=== PATIENT | male | born 1960 | race Caucasian/White ===

== ENCOUNTER → 2016-07-10 | Outpatient (CLI) | payer OTHER ==
[~2016-07-10] MED LIST: ACET-1257 PO; ASPI81TA28 PO; CEFT1INJ26 IV; CLB200 PO; DRGTP50 TD; LBT200 PO; LPT40 PO; LVQ500 PO; OXYC-609 PO; PREDPOW63 PO; RFM300 PO; SNK PO; SULF800T23 PO
== END | disposition home or self-care (01) ==
LOC: C.LABBFT 13:26
PROVIDERS: ATTEND Physician Assistant
DX: T84.54XD Infection and inflammatory reaction due to internal left knee prosthesis, subsequent encounter (principal); X58.XXXA Exposure to other specified factors, initial encounter; M00.062 Staphylococcal arthritis, left knee

== ENCOUNTER → 2016-09-25 | Outpatient (CLI) | payer OTHER ==
[2016-09-25 17:34] LABS: BASO % 0.7 %; BASO ABS # 0.06 K/uL (0-0.2); COMPLETE YES; EOS % 2.7 %; HEMATOCRIT 38.4 % (42-52); IG% 0.4 %; LYMPH % 23.3 %; LYMPH ABS # 1.97 K/uL (1.2-3.4); MEAN CELL VOLUME 86.9 fL (80-100); MEAN CORPUSCULAR HEMOGLOBIN 28.7 pg (25-34); MEAN CORPUSCULAR HGB CONC 33.1 g/dl (32-36); MEAN PLATELET VOLUME 10.1 fL (7.4-10.4); MONO % 8.6 %; NEUT % 64.3 %; PLATELET COUNT 323 K/uL (130-400); RED BLOOD COUNT 4.42 M/uL (4.7-6.1); WHITE BLOOD COUNT 8.45 K/uL (4.8-10.8)
[2016-09-25 19:04] LABS: ALB/GLOB RATIO 1.4 (0.9-2); ALKALINE PHOSPHATASE 87 U/L (45-117); ALT/SGPT 29 U/L (12-78); AST/SGOT 22 U/L (15-37); BLOOD UREA NITROGEN 16 mg/dl (7-18); BUN/CREATININE RATIO 12.3 (10-20); CALCIUM 8.9 mg/dl (8.5-10.1); CARBON DIOXIDE 23 mmol/L (21-32); CHLORIDE 109 mmol/L (98-107); GLUCOSE 82 mg/dl (70-99); POTASSIUM 4.3 mmol/L (3.5-5.1); SODIUM 142 mmol/L (136-145)
[2016-09-25 19:08] LABS: C-REACTIVE PROTEIN < 0.29 mg/dl (0-0.29)
== END | disposition home or self-care (01) ==
LOC: C.LABBFT 11:08
PROVIDERS: ATTEND Physician Assistant
DX: T84.54XD Infection and inflammatory reaction due to internal left knee prosthesis, subsequent encounter (principal); X58.XXXD Exposure to other specified factors, subsequent encounter; A49.8 Other bacterial infections of unspecified site; M00.062 Staphylococcal arthritis, left knee

== ENCOUNTER → 2016-11-11 | Outpatient (CLI) | payer OTHER | END | disposition home or self-care (01) | LOC: C.LABSPEC 10:14 | PROVIDERS: ATTEND Physician Assistant | DX: M00.062 Staphylococcal arthritis, left knee (principal); T84.54XD Infection and inflammatory reaction due to internal left knee prosthesis, subsequent encounter; Y84.8 Other medical procedures as the cause of abnormal reaction of the patient, or of later complication, without mention of misadventure at the time of the procedure ==

== ENCOUNTER → 2016-12-17 | Outpatient (CLI) | payer OTHER ==
[2016-12-17 17:18] LABS: BASO % 0.1 %; BASO ABS # 0.01 K/uL (0-0.2); COMPLETE YES; HEMATOCRIT 40.4 % (42-52); IG% 0.5 %; LYMPH % 7.9 %; LYMPH ABS # 1.32 K/uL (1.2-3.4); MEAN CELL VOLUME 86.1 fL (80-100); MEAN CORPUSCULAR HEMOGLOBIN 29.6 pg (25-34); MEAN CORPUSCULAR HGB CONC 34.4 g/dl (32-36); MEAN PLATELET VOLUME 10.3 fL (7.4-10.4); MONO % 7.5 %; PLATELET COUNT 308 K/uL (130-400); RED BLOOD COUNT 4.69 M/uL (4.7-6.1); WHITE BLOOD COUNT 16.69 K/uL (4.8-10.8)
[2016-12-22 22:31] LABS: IGG SERUM 698 mg/dL (694-1618)
== END | disposition home or self-care (01) ==
LOC: C.LAB1850 15:38
PROVIDERS: ATTEND Internal Medicine Infectious Disease
DX: I77.6 Arteritis, unspecified (principal)

== ENCOUNTER 2016-12-20 08:57 | Inpatient (IN) | payer OTHER ==
[~2016-12-20] VITALS: Ht 193 cm; Wt 110.5 kg
[2016-12-20] VITALS (35 sets, daily range): BP systolic 91–146; BP diastolic 49–90; PULSE 68–83; TEMP 37–37.3; O2SAT 90–98; Ht 193 cm; Wt 110.5 kg
[~2016-12-20 08:57] MED LIST changes: -LBT200 PO; -LPT40 PO; -OPTIRAY 320 IV PRN; -PREDPOW63 PO; -SULF800T23 PO
[2016-12-20] MEDS ORDERED: METOPROLOL TARTRATE 1 MG/ML VIAL IV STA (09:19)
[2016-12-20] MEDS ORDERED: SODIUM CHLORIDE 0.9% 500ML 500 ML IV STA (09:20)
[2016-12-20 09:31] LABS: BASO % 0.1 %; BASO ABS # 0.02 K/uL (0-0.2); COMPLETE YES; EOS % 0.3 %; HEMATOCRIT 39.8 % (42-52); IG% 0.7 %; LYMPH % 15.5 %; LYMPH ABS # 2.62 K/uL (1.2-3.4); MEAN CELL VOLUME 85.6 fL (80-100); MEAN CORPUSCULAR HEMOGLOBIN 29.9 pg (25-34); MEAN CORPUSCULAR HGB CONC 34.9 g/dl (32-36); MONO % 11.1 %; NEUT % 72.3 %; PLATELET COUNT 357 K/uL (130-400); RED BLOOD COUNT 4.65 M/uL (4.7-6.1); WHITE BLOOD COUNT 16.92 K/uL (4.8-10.8)
--- NOTE | 2016-12-20 09:32 | EMERGENCY ROOM VISIT NOTE ---
History Report prepared by Jaylan: Mary Feliz Under the Supervision of: Dr. Byron Vincent M.D. First contact with patient: 09:02 Chief Complaint: REFERRED BY DOCTOR Stated Complaint: DISECTING AORTA History of Present Illness The patient is a 56 year old male who presents to the Emergency Room after an abnormal CT scan this morning. The patient states that his symptoms started 6 days ago. He was at a picnic and ate a hamburger and a hot sausage. After eating he blew his nose and got a sharp pain in his upper back, just below his left shoulder blade. He had a "tight" feeling in his stomach and became nauseated. He states that he felt like he needed to have a bowel movement. The patient went to the ED in [place] the next day. He had a CT scan of the abdomen and pelvis and was diagnosed with aortitis. He was started on a steroid. The patient followed-up with Dr. Dinero (of infectious disease) 3 days ago, who ordered a repeat CT scan. The patient had his repeat scan this morning , which showed a descending aortic dissection. He was sent to the ED for further evaluation. The patient denies chest pain and abdominal pain. He is still having upper back pain under his left shoulder blade. He rates his pain as a 2/10 in severity. He took 1 oxycodone and 2 Tylenol [employer] and his helped alleviate some of his pain. He does not taken medication for HTN. He does take a daily baby aspirin. Source of History: patient Onset: this morning Position: chest Symptom Intensity: 2/10 Quality: sharp Timing: constant Modifying Factors (Relieving): tylenol, narcotics Associated Symptoms: + nausea, + back pain, No chest pain, No abdominal pain Review of Systems See HPI for pertinent positives & negatives. A total of 10 systems reviewed and were otherwise negative. Past Medical & Surgical Medical Problems: (1) Intractable neuropathic pain of left knee (2) Lung nodule (3) Post op infection Surgical Problems: (1) H/O left knee surgery (2) History of bilateral knee arthroplasty (3) History of knee surgery (4) Post-operative state (5) Post-operative state Social History Problems: (1) Septic arthritis Family History Hypertension FATHER Social History Smoking Status: Current Every Day Smoker Alcohol Use: none Drug Use: none Marital Status: Housing Status: lives with family Current/Historical Medications Scheduled Aspirin (Aspirin Ec), 81 MG PO BID Sulfa/Trimethoprim (Bactrim Ds 800MG/160MG), 1 TAB PO BID [Prednisone], 2 TAB PO DAILY Scheduled PRN Acetaminophen (Tylenol Extra Strength), 1,000 MG PO Q8 PRN for Pain Oxycodone HCl (Oxycodone HCl), 5-10 MG PO Q4H PRN for Pain Allergies Coded Allergies: No Known Allergies (Verified , 12/20/16) Physical Exam Vital Signs Date Time Temp Pulse Resp B/P (MAP) Pulse Ox O2 Delivery O2 Flow Rate FiO2 12/20/16 14:00 37.3 75 18 133/73 (93) 96 Room Air 12/20/16 13:27 70 12/20/16 13:21 68 18 119/80 96 Room Air 12/20/16 13:04 75 18 123/82 95 Room Air 12/20/16 12:52 72 18 115/72 95 Room Air 12/20/16 12:45 73 20 139/87 96 Room Air 12/20/16 12:15 73 18 135/92 95 Room Air 12/20/16 12:02 74 18 150/83 98 Room Air 12/20/16 12:01 98 Room Air 12/20/16 12:00 75 18 154/100 99 Room Air 12/20/16 11:33 76 18 162/100 96 Room Air 12/20/16 11:00 75 18 154/103 95 Room Air 12/20/16 10:20 67 20 144/98 95 Room Air 12/20/16 10:00 65 18 143/97 95 Room Air 12/20/16 09:54 70 18 145/103 94 Room Air 12/20/16 09:47 75 22 150/91 94 Room Air 12/20/16 09:43 87 173/87 12/20/16 09:38 81 20 173/87 97 Room Air 12/20/16 09:23 90 12/20/16 09:21 89 18 145/96 94 Room Air 12/20/16 09:15 95 12/20/16 09:00 36.5 108 17 162/91 96 Room Air Physical Exam GENERAL: Patient is a healthy-appearing well-nourished 56 year old male. HEAD: Normocephalic atraumatic EYES: Ocular movements intact pupils equal and react to light OROPHARYNX mucous membranes are moist no exudates present no erythema or edema present NECK: Supple no nuchal rigidity CHEST: Good equal expansion LUNGS: Clear and equal to auscultation CARDIAC: Normal S1 and S2 ABDOMEN: Soft nontender no guarding BACK: No CVA tenderness EXTREMITIES: No pain upon palpation normal muscle strength in all groups no clubbing cyanosis or edema NEURO: Patient is following commands and answering questions appropriately. Alert and oriented x3 Cranial Nerves 2-12 grossly intact Medical Decision & Procedures ER Provider Diagnostic Interpretation: Radiology results as stated below per my review and radiologist interpretation: CHEST COMBO ANGIO DISSECTION HISTORY: 56 years-old male patient presents with aortic dissection seen on comparison CT abdomen and pelvis study of same day. History of aortitis. COMPARISON: CT abdomen and pelvis 12/20/2016, CTA chest 02/05/2016 TECHNIQUE: CT angiography of the chest was obtained both with and without the use of 119 mL Optiray 320. Coronal and sagittal MIPS were obtained from the axial data set and were submitted for review. A dose lowering technique was used consistent with the principals of RUKHSANA. FINDINGS: CTA: No intramural hematoma identified on the noncontrast scan. There is only minimal atherosclerotic plaquing of the aorta. Heart is moderately enlarged without pericardial effusion. Theascending thoracic aorta is within normal limits. Normal three-vessel arch configuration is present with proximal great vessels patent. 5 x 6 mm collection of contrast involving the posterior aspect of the aortic isthmus suggests penetrating ulcer or small contrast collection from the dissection. Dissection begins at the aortic isthmus extending distally through the descending thoracic aorta into the upper abdominal aorta. Celiac trunk and superior mesenteric artery originate from the true lumen. Note is made of the left gastric artery emanating directly from the aorta, also from the true lumen. Based on these images, the kidneys appear to be perfused symmetrically and adequately. No a sending thoracic aortic dissection. Pulmonary arterial tree appears unremarkable. CT CHEST: Indeterminate 5 mm low attenuating nodule of the mid right thyroid is seen. No pathologic-appearing adenopathy. 6 mm noncalcified pulmonary nodule seen within the lateral basal segment right lower lobe, unchanged from comparison. Lung masters are otherwise clear without pneumothorax, pleural effusion or focal airspace consolidation. There are a few subpleural cystic foci of the right upper lobe which may reflect paraseptal emphysema. Central airways are patent. There is mild bronchial wall thickening of the lung bases. Imaged upper abdominal structures are within normal limits with the exception of nodular thickening of the left adrenal gland suggesting hyperplasia. Soft tissues and bony structures are unremarkable. IMPRESSION: 1. 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 Celiac trunk, left gastric and superior mesenteric artery originate from the true lumen. 2. 6 mm noncalcified pulmonary nodule of the lateral basal segment right lower lobe is unchanged from 02/05/2016. Follow-up guidelines are provided below. Please refer to below summary of Fleischner criteria recommendations for follow-up of incidental CT nodules (Luke Dumont, Guidelines for management of small pulmonary nodules detected on CT scans: A statement from the Fleischner Society, Radiology 237: [phone].) SOLID NODULES Solitary nodule size: <6 mm * Low risk patients: no follow-up needed * high risk patients: optional CT at 12 months Solitary nodule size: 6-8 mm * Low risk patients: follow-up at 6-12 months, then consider further follow-up at 18-24 months * high risk patients: initial follow-up CT at 6-12 months and then at 18-24 months if no change Solitary nodule size: >8 mm * either low or high risk patients - consider follow-up CT at 3 months, and/or CT-PET, and/or biopsy Multiple nodules size: <6 mm * Low risk patients: no routine follow-up * high risk patients: optional CT at 12 months Multiple nodules size: 6-8 mm * Low risk patients: follow-up at 3-6 months, then consider further follow-up at 18-24 months * high risk patients: follow-up at 3-6 months, then at 18-24 months if no change Multiple nodules size: >8 mm * Low risk patients: follow-up at 3-6 months, then consider further follow-up at 18-24 months * high risk patients: follow-up at 3-6 months, then at 18-24 months if no change Note: newly detected indeterminate nodule in persons 35 years of age or older. * Low risk patients: minimal or absent history of smoking and/or other known risk factors * high risk patients: history of smoking or of other known risk factors (e.g. first degree relative with lung cancer, or exposure to asbestos, radon, uranium) * if a nodule up to 8 mm is partly solid or is ground glass further follow-up is required after 24 months to exclude possible slow growing adenocarcinoma (FAB) SUBSOLID NODULES Solitary pure ground-glass nodule * nodule size <6 mm - no CT follow-up required * nodule size >=6 mm - follow-up CT at 6-12 months, then every 2 years until 5 years Solitary part-solid nodule * nodule size <6 mm - no CT follow-up required * nodule size >=6 mm - follow-up CT at 3-6 months. If unchanged, and solid component remains <6 mm, then annual follow-up for 5 years Multiple subsolid nodules * nodule size <6 mm - follow-up CT at 3-6 months, consider further follow-up at 2 and 4 years if stable * nodule size >=6 mm - follow-up CT at 3-6 months, subsequent management based on the most suspicious nodule(s) The above report was generated using voice recognition software. It may contain grammatical, syntax or spelling errors. Electronically signed by: Ancelmo Christiansen M.D. 12/20/2016 9:54 AM Dictated Date/Time: 12/20/2016 9:40 AM Laboratory Results 12/20/16 09:15 Red Blood Count 4.65, Mean Corpuscular Volume 85.6, Mean Corpuscular Hemoglobin 29.9, Mean Corpuscular Hemoglobin Concent 34.9, Mean Platelet Volume 10.0, Neutrophils (%) (Auto) 72.3, Lymphocytes (%) (Auto) 15.5, Monocytes (%) (Auto) 11.1, Eosinophils (%) (Auto) 0.3, Basophils (%) (Auto) 0.1, Neutrophils # (Auto ) 12.24, Lymphocytes # (Auto) 2.62, Monocytes # (Auto) 1.88, Eosinophils # (Auto ) 0.05, Basophils # (Auto) 0.02 12/20/16 09:15 Test 12/20/16 09:15 12/20/16 09:22 White Blood Count 16.92 K/uL (4.8-10.8) Red Blood Count 4.65 M/uL (4.7-6.1) Hemoglobin 13.9 g/dL (14.0-18.0) Hematocrit 39.8 % (42-52) Mean Corpuscular Volume 85.6 fL (80-100) Mean Corpuscular Hemoglobin 29.9 pg (25-34) Mean Corpuscular Hemoglobin Concent 34.9 g/dl (32-36) Platelet Count 357 K/uL (130-400) Mean Platelet Volume 10.0 fL (7.4-10.4) Neutrophils (%) (Auto) 72.3 % Lymphocytes (%) (Auto) 15.5 % Monocytes (%) (Auto) 11.1 % Eosinophils (%) (Auto) 0.3 % Basophils (%) (Auto) 0.1 % Neutrophils # (Auto) 12.24 K/uL (1.4-6.5) Lymphocytes # (Auto) 2.62 K/uL (1.2-3.4) Monocytes # (Auto) 1.88 K/uL (0.11-0.59) Eosinophils # (Auto) 0.05 K/uL (0-0.5) Basophils # (Auto) 0.02 K/uL (0-0.2) RDW Standard Deviation 41.3 fL (36.4-46.3) RDW Coefficient of Variation 13.2 % (11.5-14.5) Immature Granulocyte % (Auto) 0.7 % Immature Granulocyte # (Auto) 0.11 K/uL (0.00-0.02) Est Creatinine Clear Calc Drug Dose 86.4 ml/min Estimated GFR () 79.0 Estimated GFR (Non- 68.1 BUN/Creatinine Ratio 15.0 (10-20) Calcium Level 9.6 mg/dl (8.5-10.1) Total Bilirubin 0.4 mg/dl (0.2-1) Direct Bilirubin 0.1 mg/dl (0-0.2) Aspartate Amino Transf (AST/SGOT) 64 U/L (15-37) Alanine Aminotransferase (ALT/SGPT) 160 U/L (12-78) Alkaline Phosphatase 104 U/L (45-117) Total Creatine Kinase 106 U/L (39-308) Creatine Kinase MB 2.2 ng/ml (0.5-3.6) Creatine Kinase MB Ratio 2.1 (0-3.0) Troponin I < 0.015 ng/ml (0-0.045) Total Protein 8.1 gm/dl (6.4-8.2) Albumin 3.9 gm/dl (3.4-5.0) Lipase 147 U/L (73-393) Bedside Hemoglobin 15.0 g/dl (14.0-18.0) Bedside Hematocrit 44 % (42-52) Bedside Sodium 135 mEq/L (135-144) Bedside Potassium 3.6 mEq/L (3.3-5.0) Bedside Chloride 97 mEq/L (101-112) Bedside Total CO2 25 mEq/l (24-31) Anion Gap 17.0 mmol/L (16-25) Bedside Blood Urea Nitrogen 19 mg/dl (7-18) Bedside Creatinine 1.2 mg/dl (0.6-1.3) Bedside Glucose (other) 102 mg/dl (70-99) Bedside Ionized Calcium (Kt) 1.20 mmol/l (1.12-1.32) Labs reviewed by ED physician. Medications Administered Medications (Trade) Dose Ordered Sig/Kaylie Route Start Time Stop Time Status Last Admin Dose Admin Metoprolol Tartrate (Lopressor Iv) 15 mg NOW STAT IV 12/20/16 09:19 12/20/16 09:21 DC 12/20/16 09:43 15 MG Sodium Chloride 500 ml @ 999 mls/hr Q31M STAT IV 12/20/16 09:20 12/20/16 09:50 DC 12/20/16 09:37 999 MLS/HR Esmolol HCl 2500 mg/Prmx 250 ml @ 0 mls/hr Q0M PRN IV 12/20/16 10:45 01/19/17 10:44 12/20/16 12:39 56.7 MLS/HR ECG Indication: back/shoulder pain Rate (beats per minute): 96 Rhythm: normal sinus Findings: no acute ischemic change, no ectopy ED Course 0902: Past medical records reviewed. The patient was evaluated in room A10. A complete history and physical examination was performed. 0908: I discussed the patient's case with Dr. Healy of vascular surgery. He felt that we could keep that patient at our facility for symptomatic treatment. He did not think that the patient needed to be transferred at this time. 0919: Lopressor 15 mg IV 0920: NSS 500 ml @ 999 mls/hr IV 0922: I spoke with the radiologist and we discussed the most appropriate radiograph studies for the patient. 1037: I discussed the patient's case with Dr. Floyd of cardiology. He recommended starting the patient on an Esmolol drip and consulting with Dr. Healy. 1045: Esmolol HCl 2500 mg/Prmx 1051: I spoke with Alice Mcclain PA-C. We discussed the patient's case. The patient will be evaluated by the [facility] for further management. 1057: I reassessed the patient at this time. He is feeling better and resting comfortably. I discussed the results and treatment plan with the patient. I answered all pertaining questions that he had. He expressed understanding and verbalized agreement. 1110: I spoke with Dr. Healy of vascular surgery again at this time and we discussed the patient's results and treatment plan. Medical Decision Differential diagnosis: Etiologies such as cardiac ischemia, aortic dissection, pulmonary embolism, pneumonia, pneumothorax, musculoskeletal, infections, pericarditis, myocarditis , esophageal rupture, gastrointestinal, as well as others were entertained. This is a 56-year-old male who presents emergency department after a dissection was found on his CAT scan of his abdomen pelvis. As the topical heart is not shown the patient was sent for a contrast study of his chest immediately. He was also given Lopressor for his blood pressure. CT of his chest only shows a descending dissection. The patient's pain was controlled in the emergency department. I did discuss the case with both cardiology as well as vascular surgery who asked that the patient be admitted to the medicine service. Patient and family were in agreement with the treatment plan. Medication Reconcilliation Current Medication List: was personally reviewed by me Blood Pressure Screening Patient's blood pressure: Elevated blood pressure Blood pressure disposition: Referred to PCP Consults Time Called: 09 Consulting Physician: Dr. Healy Returned Call: [phone] I discussed the patient's case with Dr. Healy of vascular surgery. He felt that we could keep that patient at our facility for symptomatic treatment. He did not think that the patient needed to be transferred at this time. Additional Consults: Time Called: 1033 Consulted Physician: Dr. Floyd Returned Call: [phone] Additional Comments: I discussed the patient's case with Dr. Floyd of cardiology. He recommended starting the patient on an Esmolol drip and consulting with Dr. Healy. Time Called: 1043 Consulted Physician: Alice Mcclain PA-C Returned Call: [phone] Additional Comments: I spoke with Alice Mcclain PA-C. We discussed the patient's case. The patient will be evaluated by the [facility] for further management. Impression Primary Impression: Descending thoracic aortic dissection Critical Care I have personally spent greater than 30 minutes of critical care time in the direct management of this patient. This includes bedside care, interpretation of diagnostic studies, and testing, discussion with consultants, patient, and family members, and other required patient management activities. This 30 minutes is in excess of all separately billable procedures. Scribe Attestation The scribe's documentation has been prepared under my direction and personally reviewed by me in its entirety. I confirm that the note above accurately reflects all work, treatment, procedures, and medical decision making performed by me. Departure Information Dispostion Being Evaluated By Hospitalist Referrals Bobby Dinero MD (PCP) Patient Instructions My [facility]
[2016-12-20 09:34] LABS: ISTAT CREATININE 1.2 mg/dl (0.6-1.3); ISTAT IONIZED CALCIUM 1.2 mmol/l (1.12-1.32)
[2016-12-20] MEDS ORDERED: OPTIRAY 320 IV PRN (09:45)
[2016-12-20 09:50] LABS: ALT/SGPT 160 U/L (12-78); AST/SGOT 64 U/L (15-37); BLOOD UREA NITROGEN 18 mg/dl (7-18); CALCIUM 9.6 mg/dl (8.5-10.1); CARBON DIOXIDE 28 mmol/L (21-32); CHLORIDE 100 mmol/L (98-107); GLUCOSE 100 mg/dl (70-99); POTASSIUM 3.6 mmol/L (3.5-5.1); SODIUM 133 mmol/L (136-145)
[2016-12-20 09:55] LABS: ALKALINE PHOSPHATASE 104 U/L (45-117); CKMB/CK RATIO 2.1 (0-3.0)
--- NOTE | 2016-12-20 09:56 | DIAGNOSTIC IMAGING REPORT ---
CHEST COMBO ANGIO DISSECTION HISTORY: 56 years-old male patient presents with aortic dissection seen on comparison CT abdomen and pelvis study of same day. History of aortitis. COMPARISON: CT abdomen and pelvis 12/20/2016, CTA chest 02/05/2016 TECHNIQUE: CT angiography of the chest was obtained both with and without the use of 119 mL Optiray 320. Coronal and sagittal MIPS were obtained from the axial data set and were submitted for review. A dose lowering technique was used consistent with the principals of RUKHSANA. FINDINGS: CTA: No intramural hematoma identified on the noncontrast scan. There is only minimal atherosclerotic plaquing of the aorta. Heart is moderately enlarged without pericardial effusion. Theascending thoracic aorta is within normal limits. Normal three-vessel arch configuration is present with proximal great vessels patent. 5 x 6 mm collection of contrast involving the posterior aspect of the aortic isthmus suggests penetrating ulcer or small contrast collection from the dissection. Dissection begins at the aortic isthmus extending distally through the descending thoracic aorta into the upper abdominal aorta. Celiac trunk and superior mesenteric artery originate from the true lumen. Note is made of the left gastric artery emanating directly from the aorta, also from the true lumen. Based on these images, the kidneys appear to be perfused symmetrically and adequately. No a sending thoracic aortic dissection. Pulmonary arterial tree appears unremarkable. CT CHEST: Indeterminate 5 mm low attenuating nodule of the mid right thyroid is seen. No pathologic-appearing adenopathy. 6 mm noncalcified pulmonary nodule seen within the lateral basal segment right lower lobe, unchanged from comparison. Lung masters are otherwise clear without pneumothorax, pleural effusion or focal airspace consolidation. There are a few subpleural cystic foci of the right upper lobe which may reflect paraseptal emphysema. Central airways are patent. There is mild bronchial wall thickening of the lung bases. Imaged upper abdominal structures are within normal limits with the exception of nodular thickening of the left adrenal gland suggesting hyperplasia. Soft tissues and bony structures are unremarkable. IMPRESSION: 1. Aortic dissection begins at the aortic isthmus extending distally into the descending thoracic aorta and imaged upper abdominal aorta compatible with a Me[place] type B dissection. Celiac trunk, left gastric and superior mesenteric artery originate from the true lumen. 2. 6 mm noncalcified pulmonary nodule of the lateral basal segment right lower lobe is unchanged from 02/05/2016. Follow-up guidelines are provided below. Please refer to below summary of Fleischner criteria recommendations for follow-up of incidental CT nodules (Luke Dumont, Guidelines for management of small pulmonary nodules detected on CT scans: A statement from the Fleischner Society, Radiology 237: [phone].) SOLID NODULES Solitary nodule size: <6 mm * Low risk patients: no follow-up needed * high risk patients: optional CT at 12 months Solitary nodule size: 6-8 mm * Low risk patients: follow-up at 6-12 months, then consider further follow-up at 18-24 months * high risk patients: initial follow-up CT at 6-12 months and then at 18-24 months if no change Solitary nodule size: >8 mm * either low or high risk patients - consider follow-up CT at 3 months, and/or CT-PET, and/or biopsy Multiple nodules size: <6 mm * Low risk patients: no routine follow-up * high risk patients: optional CT at 12 months Multiple nodules size: 6-8 mm * Low risk patients: follow-up at 3-6 months, then consider further follow-up at 18-24 months * high risk patients: follow-up at 3-6 months, then at 18-24 months if no change Multiple nodules size: >8 mm * Low risk patients: follow-up at 3-6 months, then consider further follow-up at 18-24 months * high risk patients: follow-up at 3-6 months, then at 18-24 months if no change Note: newly detected indeterminate nodule in persons 35 years of age or older. * Low risk patients: minimal or absent history of smoking and/or other known risk factors * high risk patients: history of smoking or of other known risk factors (e.g. first degree relative with lung cancer, or exposure to asbestos, radon, uranium) * if a nodule up to 8 mm is partly solid or is ground glass further follow-up is required after 24 months to exclude possible slow growing adenocarcinoma (FAB) SUBSOLID NODULES Solitary pure ground-glass nodule * nodule size <6 mm - no CT follow-up required * nodule size >=6 mm - follow-up CT at 6-12 months, then every 2 years until 5 years Solitary part-solid nodule * nodule size <6 mm - no CT follow-up required * nodule size >=6 mm - follow-up CT at 3-6 months. If unchanged, and solid component remains <6 mm, then annual follow-up for 5 years Multiple subsolid nodules * nodule size <6 mm - follow-up CT at 3-6 months, consider further follow-up at 2 and 4 years if stable * nodule size >=6 mm - follow-up CT at 3-6 months, subsequent management based on the most suspicious nodule(s) The above report was generated using voice recognition software. It may contain grammatical, syntax or spelling errors. Electronically signed by: Ancelmo Christiansen M.D. 12/20/2016 9:54 AM Dictated Date/Time: 12/20/2016 9:40 AM
[2016-12-20] MEDS ORDERED: PREDPOW63 PO (10:59)
[2016-12-20] MEDS ORDERED: SULF800T23 PO (10:59)
[2016-12-20] MEDS ORDERED: MoRPHine SULFATE 2 MG/ML CARP IV PRN (12:00)
[2016-12-20] MEDS ORDERED: ONDANSETRON INJ 2 MG/ML 2 ML VIAL IV PRN (12:00)
[2016-12-20] MEDS: ESMOLOL / NSS 2,500 MG in PREMIXED NSS 250 ML IV PRN ×5 (12:02→21:31)
--- NOTE | 2016-12-20 13:14 | History and Physical ---
History & Physical Date & Time of Service: Dec 20, 2016 at 12:38 Chief Complaint: Disecting Aorta Primary Care Physician: Bobby Dinero MD History of Present Illness This is a 56yo M with a PMH of uncontrolled HTN, tobacco use disorder and h/o post-op knee infection who presents after an abnormal CT scan this morning showed a descending aortic dissection. Patient states that 6 days ago, he was at a picnic when he sneezed and immediately "felt a tear" in his back. Describes this immediate pain as ripping and constant in a band-like distribution across his lower back. Associated symptoms include nausea and vomiting as well as an eventual tight feel in his stomach as well. Since patient had just been eating at the picnic, he assumed he was experiencing food poisoning and returned home. By the next morning, back pain had relocated from his lower back to a sharp pain beneath his L shoulder blade. Went to the [place] ED, where he had a CT scan of abdomen/pelvis and was diagnosed with aortitis and sent home with a prednisone taper. Continued to experience pain around L shoulder blade, as well as a lessened degree of nausea/vomiting throughout the rest of the week. Was feeling almost back to his baseline when he went to a follow-up ID appt with Dr. Dinero this morning. After describing the recent events to Dr. Dinero, a repeat CT abd/pelvis was ordered, which showed a descending aortic dissection. Patient was sent to ED for further evaluation. 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 Denies any headache, lightheadedness, CP, SOB, abd pain, nausea/vomiting. Has been told in the past that he has HTN but has never taken medication for it. Does not have a PCP. Has ~10 pack years from smoking cigarettes. Denies drug use. 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 Trejo Status: Chronic (2) History of bilateral knee arthroplasty Permanent Comment: 2007 Status: Resolved (3) History of knee surgery Permanent Comment: Bilat patella revision 12/2015 Status: Resolved Family History Hypertension FATHER Social History Smoking Status: Current Every Day Smoker (1/2 PPD for ~20 years ) Drug Use: none Marital Status: Immunizations History of Influenza Vaccine: No History of Tetanus Vaccine?: No History of Pneumococcal: No History of Hepatitis B Vaccine: No Allergies Coded Allergies: No Known Allergies (Verified , 12/20/16) Home Medications Scheduled Aspirin (Aspirin Ec), 81 MG PO BID Sulfa/Trimethoprim (Bactrim Ds 800MG/160MG), 1 TAB PO BID [Prednisone], 2 TAB PO DAILY Scheduled PRN Acetaminophen (Tylenol Extra Strength), 1,000 MG PO Q8 PRN for Pain Oxycodone HCl (Oxycodone HCl), 5-10 MG PO Q4H PRN for Pain Review of Systems Ten systems reviewed and negative except as noted in the HPI. Physical Exam Vital Signs Date Time Temp Pulse Resp B/P (MAP) Pulse Ox O2 Delivery O2 Flow Rate FiO2 12/20/16 12:15 73 18 135/92 95 Room Air 12/20/16 12:02 74 18 150/83 98 Room Air 12/20/16 12:01 98 Room Air 12/20/16 12:00 75 18 154/100 99 Room Air 12/20/16 11:33 76 18 162/100 96 Room Air 12/20/16 11:00 75 18 154/103 95 Room Air 12/20/16 10:20 67 20 144/98 95 Room Air 12/20/16 10:00 65 18 143/97 95 Room Air 12/20/16 09:54 70 18 145/103 94 Room Air 12/20/16 09:47 75 22 150/91 94 Room Air 12/20/16 09:43 87 173/87 12/20/16 09:38 81 20 173/87 97 Room Air 12/20/16 09:23 90 12/20/16 09:21 89 18 145/96 94 Room Air 12/20/16 09:15 95 12/20/16 09:00 36.5 108 17 162/91 96 Room Air General Appearance: WD/WN, no apparent distress Head: normocephalic, atraumatic Eyes: normal inspection, PERRL ENT: hearing grossly normal Neck: supple, no adenopathy, thyroid normal, trachea midline Respiratory/Chest: chest non-tender, lungs clear, normal breath sounds, no respiratory distress, no accessory muscle use Cardiovascular: regular rate, rhythm, no murmur Abdomen/GI: normal bowel sounds, non tender, soft, no pulsatile mass Back: normal inspection (TTP under L shoulder blade ), no CVA tenderness Extremities/Musculoskelatal: normal inspection, no calf tenderness, normal capillary refill, no pedal edema Neurologic/Psych: no motor/sensory deficits, alert, normal mood/affect, oriented x 3 Skin: normal color, warm/dry, no rash, + pertinent finding (L knee with presence of erythema and purulent drainage surrounding vertical incision site. ) Diagnostics Laboratory Results Results Past 24 Hours Test 12/20/16 09:15 12/20/16 09:22 Range/Units White Blood Count 16.92 4.8-10.8 K/uL Red Blood Count 4.65 4.7-6.1 M/uL Hemoglobin 13.9 14.0-18.0 g/dL Hematocrit 39.8 42-52 % Mean Corpuscular Volume 85.6 80-100 fL Mean Corpuscular Hemoglobin 29.9 25-34 pg Mean Corpuscular Hemoglobin Concent 34.9 32-36 g/dl Platelet Count 357 130-400 K/uL Mean Platelet Volume 10.0 7.4-10.4 fL Neutrophils (%) (Auto) 72.3 % Lymphocytes (%) (Auto) 15.5 % Monocytes (%) (Auto) 11.1 % Eosinophils (%) (Auto) 0.3 % Basophils (%) (Auto) 0.1 % Neutrophils # (Auto) 12.24 1.4-6.5 K/uL Lymphocytes # (Auto) 2.62 1.2-3.4 K/uL Monocytes # (Auto) 1.88 0.11-0.59 K/uL Eosinophils # (Auto) 0.05 0-0.5 K/uL Basophils # (Auto) 0.02 0-0.2 K/uL RDW Standard Deviation 41.3 36.4-46.3 fL RDW Coefficient of Variation 13.2 11.5-14.5 % Immature Granulocyte % (Auto) 0.7 % Immature Granulocyte # (Auto) 0.11 0.00-0.02 K/uL Sodium Level 133 136-145 mmol/L Potassium Level 3.6 3.5-5.1 mmol/L Chloride Level 100 98-107 mmol/L Carbon Dioxide Level 28 21-32 mmol/L Anion Gap 5.0 17.0 16-25 mmol/L Blood Urea Nitrogen 18 7-18 mg/dl Creatinine 1.20 0.60-1.40 mg/dl Est Creatinine Clear Calc Drug Dose 86.4 ml/min Estimated GFR () 79.0 Estimated GFR (Non- 68.1 BUN/Creatinine Ratio 15.0 10-20 Random Glucose 100 70-99 mg/dl Calcium Level 9.6 8.5-10.1 mg/dl Total Bilirubin 0.4 0.2-1 mg/dl Direct Bilirubin 0.1 0-0.2 mg/dl Aspartate Amino Transf (AST/SGOT) 64 15-37 U/L Alanine Aminotransferase (ALT/SGPT) 160 12-78 U/L Alkaline Phosphatase 104 45-117 U/L Total Creatine Kinase 106 39-308 U/L Creatine Kinase MB 2.2 0.5-3.6 ng/ml Creatine Kinase MB Ratio 2.1 0-3.0 Troponin I < 0.015 0-0.045 ng/ml Total Protein 8.1 6.4-8.2 gm/dl Albumin 3.9 3.4-5.0 gm/dl Lipase 147 73-393 U/L Bedside Hemoglobin 15.0 14.0-18.0 g/dl Bedside Hematocrit 44 42-52 % Bedside Sodium 135 135-144 mEq/L Bedside Potassium 3.6 3.3-5.0 mEq/L Bedside Chloride 97 101-112 mEq/L Bedside Total CO2 25 24-31 mEq/l Bedside Blood Urea Nitrogen 19 7-18 mg/dl Bedside Creatinine 1.2 0.6-1.3 mg/dl Bedside Glucose (other) 102 70-99 mg/dl Bedside Ionized Calcium (Kt) 1.20 1.12-1.32 mmol/l Diagnostic Radiology CT combo angio dissection: IMPRESSION: 1. Aortic dissection begins at the aortic isthmus extending distally into the descending thoracic aorta and imaged upper abdominal aorta compatible with a [place] type B dissection. Celiac trunk, left gastric and superior mesenteric artery originate from the true lumen. 2. 6 mm noncalcified pulmonary nodule of the lateral basal segment right lower lobe is unchanged from 02/05/2016. Follow-up guidelines are provided below. Normal EKG Impression Assessment and Plan This is a 56yo M with a PMH of uncontrolled HTN, tobacco use disorder and h/o post-op knee infection who presents after an abnormal CT scan this morning showed a descending aortic dissection. New type B descending aortic dissection: stable -Risk factors: uncontrolled HTN, smoking -Per CT combo angio dissection: -Aortic dissection begins at the aortic isthmus extending distally into the descending thoracic aorta and imaged upper abdominal aorta compatible with a New type B dissection -Consulted vascular surgery. Following case but not surgical currently -Consulted nuclear medicine technician. Admitting to ICU for medical mgmt -Started esmolol drip. Goal is for BP <120/80 -BP decreased to 135/92 currently. Vitals are stable -Morphine for pain control, zofran for nausea HTN: -H/o uncontrolled HTN -Currently controlled on drip -Plan to transition to oral agents -Will need to establish care with PCP for out-pt mgmt Tobacco use disorder: -H/o 10 pack years -Interest in quitting -Ordered smoking cessation consult Post-op L knee infection: -S/p Left Knee irrigation and debridement by Dr. Trejo on 02/04/16 -Follows with Dr. 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 He was at Dr. Dinero's office due to a chronic L knee infection (he is on chronic Bactrim) - and he was told to come back after repeat CT showed descending aortic dissection. Upon presentation, another CT confirmed this diagnosis - patient is comfortable, in no distress, vitals stable. No significant findings on physical exam. Dr. Healy, of vascular surgery, consulted and recommend IV b-divya. Spoke with Dr. Bravo, nuclear medicine technician - we will admit to the ICU, continue esmolol drip for now; possible transition to labetalol drip and then start oral b-divya. Likely non-surgical case, Dr. Healy, vascular surgery consulted as well. Level of Care Critical Care Advanced Directives Existing Living Will: No Existing Power of [place] Program Coordinator: No Resuscitation Status FULL RESUSCITATION VTE Prophylaxis VTE Risk Assessment Done? Y/N: Yes Risk Level: Moderate Given or contraindicated: SCD's
--- NOTE | 2016-12-20 15:04 | Surgery Consultation ---
Consultation Date of Service Dec 20, 2016. (Sendy Osman, LAM) Chief Complaint thoracic aortic dissection (Sendy Osman, LAM) History of Present Illness The patient is a 56 year old male with hx of BL knee replacements and untreated HTN, admitted for thoracic aortic dissection, seen in consultation today. Pt states he had a tearing sensation in chest/back a few days ago, then developed sharp pain in low back/abdomen, which prompted him to seek medical attention at [facility] 2 days ago, where he was told he had aortitis and started on prednisone. Had appt with Dr Bobby Dinero for ID, who ordered a repeat CT scan which demonstrated the dissection. States to not currently having a PCP, so has not had HTN treated for years. Denies family hx of similar problems. Denies MÉNDEZ, fever, chills, SOB, N/V, rest pain, claudication, other complaints. Does smoke 1/2 PPD. (Sendy Osman, LAM) Vitals Vital Signs Past 12 Hours Date Time Temp Pulse Resp B/P (MAP) Pulse Ox O2 Delivery O2 Flow Rate FiO2 12/20/16 14:00 37.3 75 18 133/73 (93) 96 Room Air 12/20/16 13:27 70 12/20/16 13:21 68 18 119/80 96 Room Air 12/20/16 13:04 75 18 123/82 95 Room Air 12/20/16 12:52 72 18 115/72 95 Room Air 12/20/16 12:45 73 20 139/87 96 Room Air 12/20/16 12:15 73 18 135/92 95 Room Air 12/20/16 12:02 74 18 150/83 98 Room Air 12/20/16 12:01 98 Room Air 12/20/16 12:00 75 18 154/100 99 Room Air 12/20/16 11:33 76 18 162/100 96 Room Air 12/20/16 11:00 75 18 154/103 95 Room Air 12/20/16 10:20 67 20 144/98 95 Room Air 12/20/16 10:00 65 18 143/97 95 Room Air 12/20/16 09:54 70 18 145/103 94 Room Air 12/20/16 09:47 75 22 150/91 94 Room Air 12/20/16 09:43 87 173/87 12/20/16 09:38 81 20 173/87 97 Room Air 12/20/16 09:23 90 12/20/16 09:21 89 18 145/96 94 Room Air 12/20/16 09:15 95 12/20/16 09:00 36.5 108 17 162/91 96 Room Air (Sendy Osman PA-C) Allergies Coded Allergies: No Known Allergies (Verified , 12/20/16) Home Medications Scheduled Aspirin (Aspirin Ec), 81 MG PO BID Sulfa/Trimethoprim (Bactrim Ds 800MG/160MG), 1 TAB PO BID [Prednisone], 2 TAB PO DAILY Scheduled PRN Acetaminophen (Tylenol Extra Strength), 1,000 MG PO Q8 PRN for Pain Oxycodone HCl (Oxycodone HCl), 5-10 MG PO Q4H PRN for Pain Problem List Medical Problems: (1) Intractable neuropathic pain of left knee (2) Lung nodule (3) Post op infection Surgical Problems: (1) H/O left knee surgery (2) History of bilateral knee arthroplasty (3) History of knee surgery (4) Post-operative state (5) Post-operative state Social History Problems: (1) Septic arthritis (Sendy Osman PA-C) Surgical / Medical History Hx Cardiac Surgery: No Hx Abdominal Surgery: No Hx Cancer Surgery: No Hx Thoracic Surgery: No Hx Orthopedic: Yes (bilateral knee replacement 11/16/2007) Hx Urinary Tract Surgery: No HX Other Surgery: No Past Medical/Surgical History: Hypertension (Sendy Osman PA-C) Family History Hypertension FATHER (Sendy Osman PA-C) Hypertension FATHER (Taco Healy M.D.) Social History Smoking Status: Current Every Day Smoker (1/2 PPD for ~20 years ) Hx Tobacco Use In Past Year?: Yes (1-3 cigarettes a day ) Hx Alcohol Use - Type & Amnt: No Hx Substance Use -Type & Amnt: No (Sendy Osman PA-C) Review of Systems Constitutional: No chills, No fever, No malaise Skin: No change in color Eyes: No visual changes ENMT: No sore throat Respiratory: No cough, No ASHER, No short of breath Cardiovascular: + chest pain, No palpitations, No syncope, No edema, No intermittent claudication Gastrointestinal: + abdominal pain, No nausea, No vomiting Musculoskeletal: + back pain Neurologic: No dizziness, No headache, No lethargy, No numbness, No tingling ( Sendy Osman PA-C) Physical Exam Constitutional: General Apperance: heathly-appearing, well-nourished, well-developed Level of Distress: NAD Ambulation: ambulating normally Psychiatric: Mental Status: active & alert, normal mood, normal affect Orientation: oriented except where noted, to time, to place, to person Memory: recent memory normal, remote memory normal Head: normocephalic, atraumatic Eyes: EOM: EOMI ENMT: normal ENT inspection, hearing grossly normal Neck: supple, trachea midline Lungs: Respiratory effort: no dyspnea Auscultation: breath sounds normal, no wheezing, no rales/crackles, no rhonchi Cardiovascular: Apical Impulse: not displaced Heart Auscultation: RRR, no rubs, no gallops Peripheral Pulses: Pulses: full and equal, in all extremities except if noted Bruits: none appreciated Carotid Pulse: normal on the left, normal on the right Brachial Pulses: normal on the left, normal on the right Radial Pulse: normal on the left, normal on the right Femoral Pulse: normal on the left, normal on the right Posterior Tibialis Pulse: normal on the left, normal on the right Dorsalis Pedis Pulse: normal on the left, normal on the right Abdomen: Bowel Sounds: normal Inspection & Palpation: soft, non-distended, no tenderness, guarding & rebound Musculoskeletal: normal strength (5/5 throughout), normal tone Extremities: Upper Right: no cyanosis, no edema, no varicosities Upper Left: no cyanosis, no edema, no varicosities Lower Right: no cyanosis, no edema, no varicosities Lower Left: no cyanosis, no edema, no varicosities Neurologic: Cranial Nerves: grossly intact Sensation: grossly intact (Sendy Osman PA-C) Assessment and Plan ASSESSMENT and PLAN: Thoracoabdominal aortic dissection HTN Pt's imaging also reviewed by Dr Healy, demonstrates long dissection beginning distal to subclavian art with all significant branches fed by the true lumen. Pt hypertensive on arrival, improved currently. Pt states pain well controlled currently. Recommend monitoring for changes, treat with antihypertensives(BB). No indications for urgent intervention at this time. Please call if needed. (Sendy Osman, PA-C) Patient was seen, examined, and chart reviewed. Agree with exam and treatment plan of the Vascular PA. Would like to beta block to keep systolic 120 or lower. Thank you very much for letting me participate in the care of this patient. (Taco Healy M.D.)
[2016-12-20] MEDS ORDERED: NURSING VERBAL MED ORDER ONE (15:15)
[2016-12-20] MEDS: SULFAMETHOXAZOLE/TRIMETHOPRIM DS 800/160MG TAB PO SCH (16:03)
--- NOTE | 2016-12-20 16:38 | Critical Care Consultation ---
Critical Care Consultation Date of Consultation: Dec 20, 2016. Attending Physician: Lucas Portillo M.D. Reason for Consultation: Aortic Dissection History of Present Illness 56 year old male with a PMH of uncontrolled HTN, tobacco use and post op knee infection who presented to the ED this morning after a CT showed a descending thoracic dissection Last Friday he was at a picnic, sneezed and then felt a sudden pain in his back. He says it was a shearing pain around his lower back. He also felt nauseated, he vomited and he felt a tight feeling in his stomach. The next morning his back pain moved to his Left shoulder blade. He therefore went to the [facility] where a CT of his abdomen/pelvis showed aortitis at which point he was sent home with a prednisone taper. Throughout the week he continued to have L shoulder pain as well as lower back pain He had follow up with Dr. Dinero for his chronic knee infection and Dr. Dinero repeated his CT imaging which showed a descending aortic dissection. He was then contacted and told to come to the emergency department immediately. In the emergency department he rates his pain a 2/10 and his blood pressure was elevated at 162/91, but otherwise he was hemodynamically stable and in no acute distress. Dr. Healy was consulted for further management. After reviewing the images Dr. Healy deemed the patient be medically managed as he was a [place] Class B Aortic dissection. He was started on an esmolol drip for blood pressure management and he was admitted to the ICU for further observation and management. Of note the patient does not have a PCP and sees Dr. Dinero regularly for a chronic right knee infection. He has a 10-15 pack year smoking history. Past Medical/Surgical History Hypertension - not on medication Left knee septic arthritis- sees Dr. Dinero and is on bactrim daily Bilateral knee replacement Family History Hypertension FATHER Mother -Diabetes and high cholesterol No immediate family with history of HTN, UT or stroke Social History Smoking Status: Current Every Day Smoker (1/2 PPD for ~20 years ) Drug Use: none Marital Status: Housing Status: lives with family Occupation Status: employed Allergies Coded Allergies: No Known Allergies (Verified , 12/20/16) Home Medications Scheduled Aspirin (Aspirin Ec), 81 MG PO BID Sulfa/Trimethoprim (Bactrim Ds 800MG/160MG), 1 TAB PO BID [Prednisone], 2 TAB PO DAILY Scheduled PRN Acetaminophen (Tylenol Extra Strength), 1,000 MG PO Q8 PRN for Pain Oxycodone HCl (Oxycodone HCl), 5-10 MG PO Q4H PRN for Pain Current Inpatient Medications Current Inpatient Medications Medications (Trade) Dose Ordered Sig/Kaylie Route Start Time Stop Time Status Last Admin Dose Admin Ioversol (Optiray 320) 125 ml UD PRN IV 12/20/16 09:45 12/24/16 09:44 Ondansetron HCl (Zofran Inj) 4 mg Q6H PRN IV 12/20/16 12:00 01/19/17 11:59 Morphine Sulfate (MoRPHine SULFATE INJ) 2 mg Q2H PRN IV 12/20/16 12:00 01/03/17 11:59 Morphine Sulfate (MoRPHine SULFATE INJ) 4 mg Q2H PRN IV 12/20/16 12:00 01/03/17 11:59 Trimethoprim/ Sulfamethoxazole (Septra Ds 800/ 160MG Tab) 1 tab BIDM PO 12/20/16 16:30 12/30/16 16:29 Esmolol HCl 2500 mg/Prmx 250 ml @ 0 mls/hr Q0M PRN IV 12/20/16 15:00 01/19/17 10:44 Review of Systems Constitutional: No fever, No chills, No sweats Eyes: No worsening of vision, No eye pain Respiratory: No cough, No shortness of breath Cardiovascular: No chest pain, No edema, No palpitations Abdomen: No pain, No nausea, No vomiting, No diarrhea Musculoskeletal: + muscle pain (lower back and under left scapula), No calf pain Hematologic / Lymphatic: No abnormal bleeding/bruising, No clotting problems Integumentary: No new/changing skin lesions, No color change, No bleeding Physical Exam Date Time Temp Pulse Resp B/P (MAP) Pulse Ox O2 Delivery O2 Flow Rate FiO2 12/20/16 15:23 37.3 77 16 136/72 (93) 94 Room Air 12/20/16 15:23 Room Air 12/20/16 14:00 37.3 75 18 133/73 (93) 96 Room Air 12/20/16 13:27 70 12/20/16 13:21 68 18 119/80 96 Room Air 12/20/16 13:04 75 18 123/82 95 Room Air 12/20/16 12:52 72 18 115/72 95 Room Air 12/20/16 12:45 73 20 139/87 96 Room Air 12/20/16 12:15 73 18 135/92 95 Room Air 12/20/16 12:02 74 18 150/83 98 Room Air 12/20/16 12:01 98 Room Air 12/20/16 12:00 75 18 154/100 99 Room Air 12/20/16 11:33 76 18 162/100 96 Room Air 12/20/16 11:00 75 18 154/103 95 Room Air 12/20/16 10:20 67 20 144/98 95 Room Air 12/20/16 10:00 65 18 143/97 95 Room Air 12/20/16 09:54 70 18 145/103 94 Room Air 12/20/16 09:47 75 22 150/91 94 Room Air 12/20/16 09:43 87 173/87 12/20/16 09:38 81 20 173/87 97 Room Air 12/20/16 09:23 90 12/20/16 09:21 89 18 145/96 94 Room Air 12/20/16 09:15 95 12/20/16 09:00 36.5 108 17 162/91 96 Room Air General Appearance: well-appearing, no apparent distress, uncomfortable Neck: normal range of motion, no tenderness, trachea midline, supple Respiratory: breath sounds normal, clear to auscultation, no respiratory distress Cardiovasular: regular rate/rhythm, normal S1S2, no murmur, irregular rate Abdomen: non tender, normal bowel sounds, no rebound, no masses, no guarding Back: normal inspection, no midline tenderness Upper Extremities: no edema Lower Extremities: no edema, other ((L knee with presence of erythema and drainage from incision site)) Pulses: radial (R) (2+), radial (L) (2+), dorsalis pedis (R) (2+), dorsalis pedis (L) (2+) Neuro: alert, oriented x 3 Laboratory Results Last 24 Hours Test 12/20/16 09:15 12/20/16 09:22 12/20/16 14:59 12/20/16 15:57 White Blood Count 16.92 K/uL Red Blood Count 4.65 M/uL Hemoglobin 13.9 g/dL Hematocrit 39.8 % Mean Corpuscular Volume 85.6 fL Mean Corpuscular Hemoglobin 29.9 pg Mean Corpuscular Hemoglobin Concent 34.9 g/dl Platelet Count 357 K/uL Mean Platelet Volume 10.0 fL Neutrophils (%) (Auto) 72.3 % Lymphocytes (%) (Auto) 15.5 % Monocytes (%) (Auto) 11.1 % Eosinophils (%) (Auto) 0.3 % Basophils (%) (Auto) 0.1 % Neutrophils # (Auto) 12.24 K/uL Lymphocytes # (Auto) 2.62 K/uL Monocytes # (Auto) 1.88 K/uL Eosinophils # (Auto) 0.05 K/uL Basophils # (Auto) 0.02 K/uL RDW Standard Deviation 41.3 fL RDW Coefficient of Variation 13.2 % Immature Granulocyte % (Auto) 0.7 % Immature Granulocyte # (Auto) 0.11 K/uL Sodium Level 133 mmol/L Potassium Level 3.6 mmol/L Chloride Level 100 mmol/L Carbon Dioxide Level 28 mmol/L Anion Gap 5.0 mmol/L 17.0 mmol/L Blood Urea Nitrogen 18 mg/dl Creatinine 1.20 mg/dl Est Creatinine Clear Calc Drug Dose 86.4 ml/min Estimated GFR () 79.0 Estimated GFR (Non- 68.1 BUN/Creatinine Ratio 15.0 Random Glucose 100 mg/dl Calcium Level 9.6 mg/dl Total Bilirubin 0.4 mg/dl Direct Bilirubin 0.1 mg/dl Aspartate Amino Transf (AST/SGOT) 64 U/L Alanine Aminotransferase (ALT/SGPT) 160 U/L Alkaline Phosphatase 104 U/L Total Creatine Kinase 106 U/L Creatine Kinase MB 2.2 ng/ml Creatine Kinase MB Ratio 2.1 Troponin I < 0.015 ng/ml Total Protein 8.1 gm/dl Albumin 3.9 gm/dl Lipase 147 U/L Bedside Hemoglobin 15.0 g/dl Bedside Hematocrit 44 % Bedside Sodium 135 mEq/L Bedside Potassium 3.6 mEq/L Bedside Chloride 97 mEq/L Bedside Total CO2 25 mEq/l Bedside Blood Urea Nitrogen 19 mg/dl Bedside Creatinine 1.2 mg/dl Bedside Glucose (other) 102 mg/dl Bedside Ionized Calcium (Kt) 1.20 mmol/l Bedside Glucose 95 mg/dl Assessment & Plan This is a 56yo M with a PMH of uncontrolled HTN, tobacco use disorder and h/o post-op knee infection who presents after an abnormal CT scan this morning showed a descending aortic dissection. CARDIAC New type B descending aortic dissection (begins at aortic isthmus and descends into thoracic aorta) Consult vascular surgery: Dr. Healy saw patient and decided for medical management currently Esmolol drip started with BP goal <120/80 preferably 100-110/60-70 Morphine for pain control and zofran for nausea Continue to monitor blood pressure and patient for worsening pain If patient has abdominal pain or back pain will need to notify Niraj immediately Pain currently 06/21 Will need to be transition to PO meds with outpatient follow Aortitis on outside imaging: differential includes syphillis, autoimmune, RA, Lyme, vs early onset of HTN Labs ordered include RPR and lyme antibodies Follow up with NELL and ANCA ordered by Dr. Dinero as outpatient Patient started on doxycyline 100mg bid ID Dr. Dinero follows for left knee infection Continue bactrim daily Consult wound care Ordered syphilis, lyme and started on doxy Follow CBC RESP 10-15 pack year smoking history Smoking cessation consult Pulm nodule on CT - 6mm at lateral basal segment of right lower lobe F/U with outpatient PCP GI ALT double AST 160 and 80. continue to follow Regular diet ordered FULL CODE
[2016-12-20 17:26] LABS: LYME DISEASE AB IGG NEG (NEG); LYME DISEASE AB IGM NEG (NEG)
[2016-12-20] MEDS: MoRPHine SULFATE 4 MG/ML 1 ML CARP\\VIAL IV PRN ×2 (19:56→22:42)
[2016-12-20] MEDS: DOXYCYCLINE HYCLATE 100 MG CAP PO SCH (21:05)
[2016-12-20] MEDS: LABETALOL HCL 200 MG TAB PO SCH (21:31)
[2016-12-21] VITALS (49 sets, daily range): BP systolic 96–144; BP diastolic 43–102; PULSE 66–90; TEMP 36.6–37; O2SAT 90–97
[2016-12-21 00:01] LABS: RAPID PLASMA REAGIN NONREACTIVE (NONREACT)
[2016-12-21] MEDS: ESMOLOL / NSS 2,500 MG in PREMIXED NSS 250 ML IV PRN ×3 (02:58→22:15)
[2016-12-21] MEDS: MoRPHine SULFATE 4 MG/ML 1 ML CARP\\VIAL IV PRN ×5 (03:22→22:11)
[2016-12-21] MEDS: LABETALOL HCL 200 MG TAB PO SCH ×3 (05:47→22:03)
[2016-12-21 06:25] LABS: BASO % 0.3 %; BASO ABS # 0.03 K/uL (0-0.2); COMPLETE YES; EOS % 2.1 %; IG% 0.6 %; LYMPH % 15.2 %; LYMPH ABS # 1.59 K/uL (1.2-3.4); MEAN CELL VOLUME 87.2 fL (80-100); MEAN CORPUSCULAR HEMOGLOBIN 28.6 pg (25-34); MEAN CORPUSCULAR HGB CONC 32.8 g/dl (32-36); MEAN PLATELET VOLUME 9.7 fL (7.4-10.4); MONO % 13.3 %; NEUT % 68.5 %; PLATELET COUNT 259 K/uL (130-400); RED BLOOD COUNT 4.13 M/uL (4.7-6.1); WHITE BLOOD COUNT 10.46 K/uL (4.8-10.8)
[2016-12-21 06:57] LABS: PARTIAL THROMBOPLASTIN RATIO 1.1; PROTHROMBIN TIME (PATIENT) 10.3 SECONDS (9.0-12.0)
[2016-12-21 07:04] LABS: BUN/CREATININE RATIO 16.6 (10-20); CALCIUM 8.7 mg/dl (8.5-10.1); CREATININE 0.91 mg/dl (0.60-1.40); MAGNESIUM 2.2 mg/dl (1.8-2.4); POTASSIUM 4.1 mmol/L (3.5-5.1)
[2016-12-21 07:22] LABS: ALB/GLOB RATIO 0.8 (0.9-2)
[2016-12-21] MEDS: DOXYCYCLINE HYCLATE 100 MG CAP PO SCH ×2 (07:58→20:32)
[2016-12-21] MEDS: SULFAMETHOXAZOLE/TRIMETHOPRIM DS 800/160MG TAB PO SCH ×2 (07:58→17:35)
--- NOTE | 2016-12-21 08:22 | Progress Note ---
Progress Note Date of Service: Dec 21, 2016. Subjective Still has occasional pain in back at scapular level. Problem List Medical Problems: (1) Postoperative pain of left knee Status: Acute Social History Problems: (1) Septic arthritis Status: Chronic Objective Vital Signs Vital Signs Past 12 Hours Date Time Temp Pulse Resp B/P (MAP) Pulse Ox O2 Delivery O2 Flow Rate FiO2 12/21/16 06:00 70 14 99/43 (61) 91 12/21/16 05:30 70 14 120/82 (95) 94 12/21/16 05:00 68 18 129/63 (85) 93 12/21/16 04:30 78 18 114/69 (84) 95 Room Air 12/21/16 04:00 68 18 115/52 (73) 93 Room Air 12/21/16 03:30 36.9 69 14 111/72 (85) 90 Room Air 12/21/16 03:24 Room Air 12/21/16 03:00 71 19 131/70 (90) 95 Room Air 12/21/16 02:30 70 20 113/63 (80) 94 12/21/16 02:00 71 20 117/55 (75) 92 Room Air 12/21/16 01:30 73 15 117/50 (72) 97 12/21/16 01:15 77 12 113/63 (80) 91 12/21/16 01:00 66 15 117/63 (81) 92 Room Air 12/21/16 00:45 70 20 122/67 (85) 97 12/21/16 00:30 78 19 102/57 (72) 94 12/21/16 00:15 81 24 108/69 (82) 96 12/21/16 00:00 Room Air 12/21/16 00:00 37.0 69 20 96/52 (67) 90 Room Air 12/20/16 23:30 71 20 95/55 (68) 90 12/20/16 23:00 75 14 91/56 (68) 96 12/20/16 22:30 83 16 109/55 (73) 94 12/20/16 22:00 70 18 121/70 (87) 94 12/20/16 21:30 77 18 109/76 (87) 90 12/20/16 21:00 68 7 104/66 (79) 92 12/20/16 20:31 71 12 112/63 (79) 93 Exam VSS Afebrile BP better controlled Feet viable without ischemia No abd or flank pain Laboratory and Microbiology Results Past 24 Hours Test 12/20/16 09:15 12/20/16 09:22 12/20/16 14:59 12/20/16 16:18 Range/Units White Blood Count 16.92 4.8-10.8 K/uL Red Blood Count 4.65 4.7-6.1 M/uL Hemoglobin 13.9 14.0-18.0 g/dL Hematocrit 39.8 42-52 % Mean Corpuscular Volume 85.6 80-100 fL Mean Corpuscular Hemoglobin 29.9 25-34 pg Mean Corpuscular Hemoglobin Concent 34.9 32-36 g/dl Platelet Count 357 130-400 K/uL Mean Platelet Volume 10.0 7.4-10.4 fL Neutrophils (%) (Auto) 72.3 % Lymphocytes (%) (Auto) 15.5 % Monocytes (%) (Auto) 11.1 % Eosinophils (%) (Auto) 0.3 % Basophils (%) (Auto) 0.1 % Neutrophils # (Auto) 12.24 1.4-6.5 K/uL Lymphocytes # (Auto) 2.62 1.2-3.4 K/uL Monocytes # (Auto) 1.88 0.11-0.59 K/uL Eosinophils # (Auto) 0.05 0-0.5 K/uL Basophils # (Auto) 0.02 0-0.2 K/uL RDW Standard Deviation 41.3 36.4-46.3 fL RDW Coefficient of Variation 13.2 11.5-14.5 % Immature Granulocyte % (Auto) 0.7 % Immature Granulocyte # (Auto) 0.11 0.00-0.02 K/uL Sodium Level 133 136-145 mmol/L Potassium Level 3.6 3.5-5.1 mmol/L Chloride Level 100 98-107 mmol/L Carbon Dioxide Level 28 21-32 mmol/L Anion Gap 5.0 17.0 16-25 mmol/L Blood Urea Nitrogen 18 7-18 mg/dl Creatinine 1.20 0.60-1.40 mg/dl Est Creatinine Clear Calc Drug Dose 86.4 ml/min Estimated GFR () 79.0 Estimated GFR (Non- 68.1 BUN/Creatinine Ratio 15.0 10-20 Random Glucose 100 70-99 mg/dl Calcium Level 9.6 8.5-10.1 mg/dl Total Bilirubin 0.4 0.2-1 mg/dl Direct Bilirubin 0.1 0-0.2 mg/dl Aspartate Amino Transf (AST/SGOT) 64 15-37 U/L Alanine Aminotransferase (ALT/SGPT) 160 12-78 U/L Alkaline Phosphatase 104 45-117 U/L Total Creatine Kinase 106 39-308 U/L Creatine Kinase MB 2.2 0.5-3.6 ng/ml Creatine Kinase MB Ratio 2.1 0-3.0 Troponin I < 0.015 0-0.045 ng/ml Total Protein 8.1 6.4-8.2 gm/dl Albumin 3.9 3.4-5.0 gm/dl Lipase 147 73-393 U/L Bedside Hemoglobin 15.0 14.0-18.0 g/dl Bedside Hematocrit 44 42-52 % Bedside Sodium 135 135-144 mEq/L Bedside Potassium 3.6 3.3-5.0 mEq/L Bedside Chloride 97 101-112 mEq/L Bedside Total CO2 25 24-31 mEq/l Bedside Blood Urea Nitrogen 19 7-18 mg/dl Bedside Creatinine 1.2 0.6-1.3 mg/dl Bedside Glucose (other) 102 70-99 mg/dl Bedside Ionized Calcium (Kt) 1.20 1.12-1.32 mmol/l Bedside Glucose 95 70-99 mg/dl Rheumatoid Factor < 10.0 0-15 U/mL Rapid Plasma Reagin NONREACTIVE NONREACT Lyme Disease IgG Antibody NEG NEG Lyme Disease IgM Antibody NEG NEG Test 12/20/16 22:39 12/21/16 06:15 Range/Units Bedside Glucose 93 70-99 mg/dl White Blood Count 10.46 4.8-10.8 K/uL Red Blood Count 4.13 4.7-6.1 M/uL Hemoglobin 11.8 14.0-18.0 g/dL Hematocrit 36.0 42-52 % Mean Corpuscular Volume 87.2 80-100 fL Mean Corpuscular Hemoglobin 28.6 25-34 pg Mean Corpuscular Hemoglobin Concent 32.8 32-36 g/dl Platelet Count 259 130-400 K/uL Mean Platelet Volume 9.7 7.4-10.4 fL Neutrophils (%) (Auto) 68.5 % Lymphocytes (%) (Auto) 15.2 % Monocytes (%) (Auto) 13.3 % Eosinophils (%) (Auto) 2.1 % Basophils (%) (Auto) 0.3 % Neutrophils # (Auto) 7.17 1.4-6.5 K/uL Lymphocytes # (Auto) 1.59 1.2-3.4 K/uL Monocytes # (Auto) 1.39 0.11-0.59 K/uL Eosinophils # (Auto) 0.22 0-0.5 K/uL Basophils # (Auto) 0.03 0-0.2 K/uL RDW Standard Deviation 42.6 36.4-46.3 fL RDW Coefficient of Variation 13.1 11.5-14.5 % Immature Granulocyte % (Auto) 0.6 % Immature Granulocyte # (Auto) 0.06 0.00-0.02 K/uL Prothrombin Time 10.3 9.0-12.0 SECONDS Prothromb Time International Ratio 1.0 0.9-1.1 Activated Partial Thromboplast Time 29.1 21.0-31.0 SECONDS Partial Thromboplastin Ratio 1.1 Sodium Level 135 136-145 mmol/L Potassium Level 4.1 3.5-5.1 mmol/L Chloride Level 105 98-107 mmol/L Carbon Dioxide Level 24 21-32 mmol/L Anion Gap 6.0 3-11 mmol/L Blood Urea Nitrogen 15 7-18 mg/dl Creatinine 0.91 0.60-1.40 mg/dl Est Creatinine Clear Calc Drug Dose 125.2 ml/min Estimated GFR () 110.3 Estimated GFR (Non- 95.2 BUN/Creatinine Ratio 16.6 10-20 Random Glucose 94 70-99 mg/dl Calcium Level 8.7 8.5-10.1 mg/dl Magnesium Level 2.2 1.8-2.4 mg/dl Total Bilirubin 0.4 0.2-1 mg/dl Aspartate Amino Transf (AST/SGOT) 29 15-37 U/L Alanine Aminotransferase (ALT/SGPT) 99 12-78 U/L Alkaline Phosphatase 75 45-117 U/L Total Protein 6.3 6.4-8.2 gm/dl Albumin 2.8 3.4-5.0 gm/dl Globulin 3.5 2.5-4.0 gm/dl Albumin/Globulin Ratio 0.8 0.9-2 Microbiology Results 12/20/16 MRSA DNA Surveillance Screen - Final, Complete Specimen Negative for MRSA by DNA Probe Imp: Descending aortic dissection Plan: BP appears controlled. If he develops intractable pain will need CTA. Would continue to observe at this time. If intermittent pain continues may need repeat CTA next week
--- NOTE | 2016-12-21 09:49 | Progress Note ---
Internal Med Progress Note Date of Service: Dec 21, 2016. Provider Documentation: SUBJECTIVE: Patient currently in the ICU, is being transitioned off of Beta-Juan Pablo drip to alternative PO Labetalol. Patient reports that since his admission to ICU his pain running from shoulder blades to back has resolved. Denies pain anywhere else of the body. Denies shortness of breath OBJECTIVE: At bedside on my exam, blood pressure 101/63, HR 62, patient on room air, not tachypneic Exam: General Appearance: WD/WN, no apparent distress Head: normocephalic, atraumatic Eyes: normal inspection, PERRL ENT: hearing grossly normal Neck: supple, no adenopathy, thyroid normal, trachea midline Respiratory/Chest: chest non-tender, lungs clear, normal breath sounds, no respiratory distress, no accessory muscle use Cardiovascular: regular rate, rhythm, no murmur Abdomen/GI: normal bowel sounds, non tender, soft, no pulsatile mass, no audible abdominal bruit Back: normal inspection, nontender Extremities/Musculoskelatal: normal inspection, no calf tenderness, left knee has dressing Neurologic/Psych: no motor/sensory deficits, alert, normal mood/affect, oriented x 3 ASSESSMENT & PLAN: 56 year old M with descending aorta disection under the care of the Intensive Care Unit, Dr. Bravo managing the patient's care, vascular service also involved. Patient currently being transitioned off of Esmolol drip to Labetalol PO. 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 In addition patient has incidental lung nodule on CT chest exam. The following is patient's CTA exam on admission from 12/20/2016 CTA: No intramural hematoma identified on the noncontrast scan. There is only minimal atherosclerotic plaquing of the aorta. Heart is moderately enlarged without pericardial effusion. Theascending thoracic aorta is within normal limits. Normal three-vessel arch configuration is present with proximal great vessels patent. 5 x 6 mm collection of contrast involving the posterior aspect of the aortic isthmus suggests penetrating ulcer or small contrast collection from the dissection. Dissection begins at the aortic isthmus extending distally through the descending thoracic aorta into the upper abdominal aorta. Celiac trunk and superior mesenteric artery originate from the true lumen. Note is made of the left gastric artery emanating directly from the aorta, also from the true lumen. Based on these images, the kidneys appear to be perfused symmetrically and adequately. No a sending thoracic aortic dissection. Pulmonary arterial tree appears unremarkable. CT CHEST: 1. Aortic dissection begins at the aortic isthmus extending distally into the descending thoracic aorta and imaged upper abdominal aorta compatible with a [place] type B dissection. Celiac trunk, left gastric and superior mesenteric artery originate from the true lumen. 2. 6 mm noncalcified pulmonary nodule of the lateral basal segment right lower lobe is unchanged from 02/05/2016 Vital Signs: Date Time Temp Pulse Resp B/P (MAP) Pulse Ox O2 Delivery O2 Flow Rate FiO2 12/21/16 09:00 73 15 112/65 (81) 94 Room Air 12/21/16 08:30 72 18 101/50 (67) 93 Room Air 12/21/16 08:00 36.9 79 16 110/64 (79) 95 Room Air 12/21/16 08:00 Room Air 12/21/16 07:31 83 24 105/68 (80) 94 Room Air 12/21/16 07:00 70 23 105/54 (71) 91 Room Air 12/21/16 06:00 70 14 99/43 (61) 91 12/21/16 05:30 70 14 120/82 (95) 94 12/21/16 05:00 68 18 129/63 (85) 93 12/21/16 04:30 78 18 114/69 (84) 95 Room Air 12/21/16 04:00 68 18 115/52 (73) 93 Room Air 12/21/16 03:30 36.9 69 14 111/72 (85) 90 Room Air 12/21/16 03:24 Room Air 12/21/16 03:00 71 19 131/70 (90) 95 Room Air 12/21/16 02:30 70 20 113/63 (80) 94 12/21/16 02:00 71 20 117/55 (75) 92 Room Air 12/21/16 01:30 73 15 117/50 (72) 97 12/21/16 01:15 77 12 113/63 (80) 91 12/21/16 01:00 66 15 117/63 (81) 92 Room Air 12/21/16 00:45 70 20 122/67 (85) 97 12/21/16 00:30 78 19 102/57 (72) 94 12/21/16 00:15 81 24 108/69 (82) 96 12/21/16 00:00 Room Air 12/21/16 00:00 37.0 69 20 96/52 (67) 90 Room Air 12/20/16 23:30 71 20 95/55 (68) 90 12/20/16 23:00 75 14 91/56 (68) 96 12/20/16 22:30 83 16 109/55 (73) 94 12/20/16 22:00 70 18 121/70 (87) 94 12/20/16 21:30 77 18 109/76 (87) 90 12/20/16 21:00 68 7 104/66 (79) 92 12/20/16 20:31 71 12 112/63 (79) 93 12/20/16 20:15 75 19 116/71 (86) 93 12/20/16 20:00 Room Air 12/20/16 20:00 37.0 73 20 111/63 (79) 94 Room Air 12/20/16 19:45 71 11 126/68 (87) 96 12/20/16 19:30 72 15 111/54 (73) 94 12/20/16 19:15 72 17 107/49 (68) 91 12/20/16 19:00 76 18 125/86 (99) 96 12/20/16 18:04 37.3 76 16 118/61 (80) 94 Room Air 12/20/16 18:00 78 16 118/61 (80) 91 12/20/16 17:45 77 16 107/62 (70) 94 12/20/16 17:30 77 16 115/59 (70) 91 12/20/16 17:15 78 16 133/77 (93) 94 12/20/16 17:00 78 18 130/83 (94) 94 12/20/16 16:45 77 18 122/72 (82) 12/20/16 16:30 79 18 124/76 (93) 96 12/20/16 16:15 73 16 111/61 (82) 91 12/20/16 16:00 77 16 124/79 (83) 93 12/20/16 15:45 74 16 130/72 (82) 96 12/20/16 15:30 76 14 136/72 (84) 94 12/20/16 15:23 37.3 77 16 136/72 (93) 94 Room Air 12/20/16 15:23 Room Air 12/20/16 15:16 76 19 146/82 (104) 95 12/20/16 15:15 78 23 97 12/20/16 15:00 79 14 134/90 (106) 94 12/20/16 14:45 71 18 124/75 (87) 95 12/20/16 14:30 72 24 139/82 (105) 94 12/20/16 14:15 75 36 122/85 (91) 93 12/20/16 14:08 75 23 133/73 (84) 92 12/20/16 14:00 37.3 75 18 133/73 (93) 96 Room Air 12/20/16 13:27 70 12/20/16 13:21 68 18 119/80 96 Room Air 12/20/16 13:04 75 18 123/82 95 Room Air 12/20/16 12:52 72 18 115/72 95 Room Air 12/20/16 12:45 73 20 139/87 96 Room Air 12/20/16 12:15 73 18 135/92 95 Room Air 12/20/16 12:02 74 18 150/83 98 Room Air 12/20/16 12:01 98 Room Air 12/20/16 12:00 75 18 154/100 99 Room Air 12/20/16 11:33 76 18 162/100 96 Room Air 12/20/16 11:00 75 18 154/103 95 Room Air 12/20/16 10:20 67 20 144/98 95 Room Air 12/20/16 10:00 65 18 143/97 95 Room Air Lab Results: Results Past 24 Hours Test 12/20/16 14:59 12/20/16 16:18 12/20/16 22:39 12/21/16 06:15 Range/Units Bedside Glucose 95 93 70-99 mg/dl Rheumatoid Factor < 10.0 0-15 U/mL Rapid Plasma Reagin NONREACTIVE NONREACT Lyme Disease IgG Antibody NEG NEG Lyme Disease IgM Antibody NEG NEG White Blood Count 10.46 4.8-10.8 K/uL Red Blood Count 4.13 4.7-6.1 M/uL Hemoglobin 11.8 14.0-18.0 g/dL Hematocrit 36.0 42-52 % Mean Corpuscular Volume 87.2 80-100 fL Mean Corpuscular Hemoglobin 28.6 25-34 pg Mean Corpuscular Hemoglobin Concent 32.8 32-36 g/dl Platelet Count 259 130-400 K/uL Mean Platelet Volume 9.7 7.4-10.4 fL Neutrophils (%) (Auto) 68.5 % Lymphocytes (%) (Auto) 15.2 % Monocytes (%) (Auto) 13.3 % Eosinophils (%) (Auto) 2.1 % Basophils (%) (Auto) 0.3 % Neutrophils # (Auto) 7.17 1.4-6.5 K/uL Lymphocytes # (Auto) 1.59 1.2-3.4 K/uL Monocytes # (Auto) 1.39 0.11-0.59 K/uL Eosinophils # (Auto) 0.22 0-0.5 K/uL Basophils # (Auto) 0.03 0-0.2 K/uL RDW Standard Deviation 42.6 36.4-46.3 fL RDW Coefficient of Variation 13.1 11.5-14.5 % Immature Granulocyte % (Auto) 0.6 % Immature Granulocyte # (Auto) 0.06 0.00-0.02 K/uL Prothrombin Time 10.3 9.0-12.0 SECONDS Prothromb Time International Ratio 1.0 0.9-1.1 Activated Partial Thromboplast Time 29.1 21.0-31.0 SECONDS Partial Thromboplastin Ratio 1.1 Sodium Level 135 136-145 mmol/L Potassium Level 4.1 3.5-5.1 mmol/L Chloride Level 105 98-107 mmol/L Carbon Dioxide Level 24 21-32 mmol/L Anion Gap 6.0 3-11 mmol/L Blood Urea Nitrogen 15 7-18 mg/dl Creatinine 0.91 0.60-1.40 mg/dl Est Creatinine Clear Calc Drug Dose 125.2 ml/min Estimated GFR () 110.3 Estimated GFR (Non- 95.2 BUN/Creatinine Ratio 16.6 10-20 Random Glucose 94 70-99 mg/dl Calcium Level 8.7 8.5-10.1 mg/dl Magnesium Level 2.2 1.8-2.4 mg/dl Total Bilirubin 0.4 0.2-1 mg/dl Aspartate Amino Transf (AST/SGOT) 29 15-37 U/L Alanine Aminotransferase (ALT/SGPT) 99 12-78 U/L Alkaline Phosphatase 75 45-117 U/L Total Protein 6.3 6.4-8.2 gm/dl Albumin 2.8 3.4-5.0 gm/dl Globulin 3.5 2.5-4.0 gm/dl Albumin/Globulin Ratio 0.8 0.9-2 Microbiology Results 12/20/16 MRSA DNA Surveillance Screen - Final, Complete Specimen Negative for MRSA by DNA Probe
--- NOTE | 2016-12-21 11:27 | Critical Care Progress Note ---
Critical Care Progress Note Date of Service Dec 21, 2016. Attending Dr. Bravo Subjective The patient was admitted with descendign aortic dissection with the vessels coming off the true lumen. He was evaluated by Dr Franks and is in ICU for medical control of BP to 100/60. He has been on esmolol and morphone 4 mg PRN for pain. We started labetalol to transition to oral meds This morning he says he has no pain / and has not asked for any morphone. he was sleepy and voiced no other complaints. Lyme disease negative NELL negative will stop doxycycline Objective HENT no JVD no LN Lungs b/l CTA heart nl s1 s2 no murmus abdomen soft non tender no megalies ext no CCE pulses felt symmetrical bilaterally neurologic: alert awake oriented X3 no focal motor deficits. Current SOFA Score SOFA Score Response (Comments) Value PaO2/FiO2 (mmHg) < 400 1 SaO2 / FIO2 221 - 301 1 Platelets (x10) > 150 0 Bilirubin (mg/dL) < 1.2 0 Ying Coma Score 15 0 Level of Hypotension No Hypotension 0 Creatinine (mg/dL) < 1.2 0 Total 2 Previous SOFA Scores 0 Assessment & Plan This is a 56yo M with a PMH of uncontrolled HTN, tobacco use disorder and h/o post-op knee infection who was admitted with a descending aortic dissection. On esmolol target BP 110/60 maintained and is transitioning to oral labetalol neurologic PRN 4 mg morphine sulfate for pain respiratory no issues recommend evaluation with PFT as ooutpatient for tobacco use Smoking cessation consult Pulm nodule on CT - 6mm at lateral basal segment of right lower lobe F/U with outpatient PCP 10-15 pack year smoking history CARDIAC [place] type B descending aortic dissection (begins at aortic isthmus and descends into thoracic aorta) Consult vascular surgery: Dr. Healy saw patient and decided for medical management currently Esmolol drip started with BP goal <120/80 preferably 100-110/60-70 Continue to monitor blood pressure and patient for worsening pain If patient has abdominal pain or back pain will need to notify Niraj immediately Pain currently 04/23 labetalol increased to 400 mg TID Lyme titers were negative. chronic infection IgG is unlikely we will dc doxycyclin Follow up with NELL and ANCA ordered by Dr. Dinero as outpatient ID Dr. Dinero follows for left knee infection Continue bactrim daily Consult wound care Ordered syphilis RPR Follow CBC GI ALT double AST 160 and 80. continue to follow heart healthy 2 gm salt diet FULL CODE critical care time 35 min Consults & Procedures Consultants: vascular surgery Procedures: none Data Medications: Current Inpatient Medications Medications (Trade) Dose Ordered Sig/Kaylie Route Start Time Stop Time Status Last Admin Dose Admin Ioversol (Optiray 320) 125 ml UD PRN IV 12/20/16 09:45 12/24/16 09:44 Ondansetron HCl (Zofran Inj) 4 mg Q6H PRN IV 12/20/16 12:00 01/19/17 11:59 Morphine Sulfate (MoRPHine SULFATE INJ) 2 mg Q2H PRN IV 12/20/16 12:00 01/03/17 11:59 12/20/16 18:12 2 MG Morphine Sulfate (MoRPHine SULFATE INJ) 4 mg Q2H PRN IV 12/20/16 12:00 01/03/17 11:59 12/21/16 05:51 4 MG Trimethoprim/ Sulfamethoxazole (Septra Ds 800/ 160MG Tab) 1 tab BIDM PO 12/20/16 16:30 12/30/16 16:29 12/21/16 07:58 1 TAB Esmolol HCl 2500 mg/Prmx 250 ml @ 0 mls/hr Q0M PRN IV 12/20/16 15:00 01/19/17 10:44 12/21/16 02:58 32 MLS/HR Doxycycline Hyclate (Vibramycin Cap) 100 mg BID PO 12/20/16 21:00 12/30/16 20:59 12/21/16 07:58 100 MG Labetalol HCl (Normodyne Tab) 200 mg Q8 PO 12/20/16 22:00 01/19/17 21:59 12/21/16 05:47 200 MG Vital Signs: Date Time Temp Pulse Resp B/P (MAP) Pulse Ox O2 Delivery O2 Flow Rate FiO2 12/21/16 09:00 73 15 112/65 (81) 94 Room Air 12/21/16 08:30 72 18 101/50 (67) 93 Room Air 12/21/16 08:00 36.9 79 16 110/64 (79) 95 Room Air 12/21/16 08:00 Room Air 12/21/16 07:31 83 24 105/68 (80) 94 Room Air 12/21/16 07:00 70 23 105/54 (71) 91 Room Air 12/21/16 06:00 70 14 99/43 (61) 91 12/21/16 05:30 70 14 120/82 (95) 94 12/21/16 05:00 68 18 129/63 (85) 93 12/21/16 04:30 78 18 114/69 (84) 95 Room Air 12/21/16 04:00 68 18 115/52 (73) 93 Room Air 12/21/16 03:30 36.9 69 14 111/72 (85) 90 Room Air 12/21/16 03:24 Room Air 12/21/16 03:00 71 19 131/70 (90) 95 Room Air 12/21/16 02:30 70 20 113/63 (80) 94 12/21/16 02:00 71 20 117/55 (75) 92 Room Air 12/21/16 01:30 73 15 117/50 (72) 97 12/21/16 01:15 77 12 113/63 (80) 91 12/21/16 01:00 66 15 117/63 (81) 92 Room Air 12/21/16 00:45 70 20 122/67 (85) 97 12/21/16 00:30 78 19 102/57 (72) 94 12/21/16 00:15 81 24 108/69 (82) 96 12/21/16 00:00 Room Air 12/21/16 00:00 37.0 69 20 96/52 (67) 90 Room Air 12/20/16 23:30 71 20 95/55 (68) 90 12/20/16 23:00 75 14 91/56 (68) 96 12/20/16 22:30 83 16 109/55 (73) 94 12/20/16 22:00 70 18 121/70 (87) 94 12/20/16 21:30 77 18 109/76 (87) 90 12/20/16 21:00 68 7 104/66 (79) 92 12/20/16 20:31 71 12 112/63 (79) 93 12/20/16 20:15 75 19 116/71 (86) 93 12/20/16 20:00 Room Air 12/20/16 20:00 37.0 73 20 111/63 (79) 94 Room Air 12/20/16 19:45 71 11 126/68 (87) 96 12/20/16 19:30 72 15 111/54 (73) 94 12/20/16 19:15 72 17 107/49 (68) 91 12/20/16 19:00 76 18 125/86 (99) 96 12/20/16 18:04 37.3 76 16 118/61 (80) 94 Room Air 12/20/16 18:00 78 16 118/61 (80) 91 12/20/16 17:45 77 16 107/62 (70) 94 12/20/16 17:30 77 16 115/59 (70) 91 12/20/16 17:15 78 16 133/77 (93) 94 12/20/16 17:00 78 18 130/83 (94) 94 12/20/16 16:45 77 18 122/72 (82) 12/20/16 16:30 79 18 124/76 (93) 96 12/20/16 16:15 73 16 111/61 (82) 91 12/20/16 16:00 77 16 124/79 (83) 93 12/20/16 15:45 74 16 130/72 (82) 96 12/20/16 15:30 76 14 136/72 (84) 94 12/20/16 15:23 37.3 77 16 136/72 (93) 94 Room Air 12/20/16 15:23 Room Air 12/20/16 15:16 76 19 146/82 (104) 95 12/20/16 15:15 78 23 97 12/20/16 15:00 79 14 134/90 (106) 94 12/20/16 14:45 71 18 124/75 (87) 95 12/20/16 14:30 72 24 139/82 (105) 94 12/20/16 14:15 75 36 122/85 (91) 93 12/20/16 14:08 75 23 133/73 (84) 92 12/20/16 14:00 37.3 75 18 133/73 (93) 96 Room Air 12/20/16 13:27 70 12/20/16 13:21 68 18 119/80 96 Room Air 12/20/16 13:04 75 18 123/82 95 Room Air 12/20/16 12:52 72 18 115/72 95 Room Air 12/20/16 12:45 73 20 139/87 96 Room Air 12/20/16 12:15 73 18 135/92 95 Room Air 12/20/16 12:02 74 18 150/83 98 Room Air 12/20/16 12:01 98 Room Air 12/20/16 12:00 75 18 154/100 99 Room Air 12/20/16 11:33 76 18 162/100 96 Room Air 12/20/16 11:00 75 18 154/103 95 Room Air 12/20/16 10:20 67 20 144/98 95 Room Air Laboratory Results: Last 24 Hours Test 12/20/16 14:59 12/20/16 16:18 12/20/16 22:39 12/21/16 06:15 Bedside Glucose 95 mg/dl 93 mg/dl Rheumatoid Factor < 10.0 U/mL Rapid Plasma Reagin NONREACTIVE Lyme Disease IgG Antibody NEG Lyme Disease IgM Antibody NEG White Blood Count 10.46 K/uL Red Blood Count 4.13 M/uL Hemoglobin 11.8 g/dL Hematocrit 36.0 % Mean Corpuscular Volume 87.2 fL Mean Corpuscular Hemoglobin 28.6 pg Mean Corpuscular Hemoglobin Concent 32.8 g/dl Platelet Count 259 K/uL Mean Platelet Volume 9.7 fL Neutrophils (%) (Auto) 68.5 % Lymphocytes (%) (Auto) 15.2 % Monocytes (%) (Auto) 13.3 % Eosinophils (%) (Auto) 2.1 % Basophils (%) (Auto) 0.3 % Neutrophils # (Auto) 7.17 K/uL Lymphocytes # (Auto) 1.59 K/uL Monocytes # (Auto) 1.39 K/uL Eosinophils # (Auto) 0.22 K/uL Basophils # (Auto) 0.03 K/uL RDW Standard Deviation 42.6 fL RDW Coefficient of Variation 13.1 % Immature Granulocyte % (Auto) 0.6 % Immature Granulocyte # (Auto) 0.06 K/uL Prothrombin Time 10.3 SECONDS Prothromb Time International Ratio 1.0 Activated Partial Thromboplast Time 29.1 SECONDS Partial Thromboplastin Ratio 1.1 Sodium Level 135 mmol/L Potassium Level 4.1 mmol/L Chloride Level 105 mmol/L Carbon Dioxide Level 24 mmol/L Anion Gap 6.0 mmol/L Blood Urea Nitrogen 15 mg/dl Creatinine 0.91 mg/dl Est Creatinine Clear Calc Drug Dose 125.2 ml/min Estimated GFR () 110.3 Estimated GFR (Non- 95.2 BUN/Creatinine Ratio 16.6 Random Glucose 94 mg/dl Calcium Level 8.7 mg/dl Magnesium Level 2.2 mg/dl Total Bilirubin 0.4 mg/dl Aspartate Amino Transf (AST/SGOT) 29 U/L Alanine Aminotransferase (ALT/SGPT) 99 U/L Alkaline Phosphatase 75 U/L Total Protein 6.3 gm/dl Albumin 2.8 gm/dl Globulin 3.5 gm/dl Albumin/Globulin Ratio 0.8
[2016-12-22] VITALS (30 sets, daily range): BP systolic 90–137; BP diastolic 41–73; PULSE 66–84; TEMP 36.8–37; O2SAT 90–97
[2016-12-22] MEDS: MoRPHine SULFATE 4 MG/ML 1 ML CARP\\VIAL IV PRN ×4 (03:31→20:35)
[2016-12-22] MEDS: LABETALOL HCL 200 MG TAB PO SCH ×2 (05:46→21:39)
[2016-12-22 05:57] LABS: BASO % 0.2 %; BASO ABS # 0.02 K/uL (0-0.2); COMPLETE YES; EOS % 1.9 %; HEMATOCRIT 35.3 % (42-52); IG% 0.6 %; LYMPH % 14.4 %; LYMPH ABS # 1.46 K/uL (1.2-3.4); MEAN CELL VOLUME 87.6 fL (80-100); MEAN CORPUSCULAR HEMOGLOBIN 28.5 pg (25-34); MEAN CORPUSCULAR HGB CONC 32.6 g/dl (32-36); MEAN PLATELET VOLUME 9.8 fL (7.4-10.4); MONO % 13.7 %; NEUT % 69.2 %; PLATELET COUNT 270 K/uL (130-400); RED BLOOD COUNT 4.03 M/uL (4.7-6.1); WHITE BLOOD COUNT 10.13 K/uL (4.8-10.8)
[2016-12-22 06:08] LABS: PARTIAL THROMBOPLASTIN RATIO 1.2; PROTHROMBIN TIME (PATIENT) 10.4 SECONDS (9.0-12.0)
[2016-12-22] MEDS: ESMOLOL / NSS 2,500 MG in PREMIXED NSS 250 ML IV PRN ×2 (06:19→16:17)
[2016-12-22 06:29] LABS: BUN/CREATININE RATIO 14.9 (10-20); CALCIUM 8.5 mg/dl (8.5-10.1); CREATININE 0.98 mg/dl (0.60-1.40); POTASSIUM 4.1 mmol/L (3.5-5.1)
[2016-12-22] MEDS: DOXYCYCLINE HYCLATE 100 MG CAP PO SCH (08:51)
[2016-12-22] MEDS: SULFAMETHOXAZOLE/TRIMETHOPRIM DS 800/160MG TAB PO SCH ×2 (08:51→16:14)
[2016-12-22] MEDS ORDERED: LABETALOL HCL 200 MG TAB PO STA (09:36)
[2016-12-22] MEDS ORDERED: LABETALOL HCL 200 MG TAB PO SCH (14:00)
--- NOTE | 2016-12-22 15:10 | Critical Care Progress Note ---
Critical Care Progress Note Date of Service Dec 22, 2016. ICU Day ICU Day Number: [address] Bravo Subjective The patient was admitted with descendign aortic dissection with the vessels coming off the true lumen. He was evaluated by Dr Franks and is in ICU for medical control of BP to 100/60. He has been on esmolol and morphone 4 mg PRN for pain. We started labetalol to transition to oral meds Over the past 24 hours his pain subsided and is taking only 2 mg morphine once a day. His BP was 110s/60s yesterday evening and we stopped the esmolol drip. However, at night it increased to 130s/60. Esmolol was restarted. This am I increased his dose to 600 mg and gave him an additional 200 mg to augment the morning dose. He is currently on 40 mg esmolol and received the second 600 mg labetalol an hour ago and BP remains 120s/60s. 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 Current SOFA Score SOFA Score Response (Comments) Value PaO2/FiO2 (mmHg) < 400 1 SaO2 / FIO2 221 - 301 1 Platelets (x10) > 150 0 Bilirubin (mg/dL) < 1.2 0 Ying Coma Score 15 0 Level of Hypotension No Hypotension 0 Creatinine (mg/dL) < 1.2 0 Total 2 Previous SOFA Scores 0 Assessment & Plan This is a 56yo M with a PMH of uncontrolled HTN, tobacco use disorder and h/o post-op knee infection who was admitted with a descending aortic dissection. On esmolol target BP 110/60 maintained and is transitioning to oral labetalol neurologic PRN 4 mg morphine sulfate for pain respiratory no issues recommend evaluation with PFT as outpatient for tobacco use Smoking cessation consult Pulm nodule on CT - 6mm at lateral basal segment of right lower lobe F/U with outpatient PCP 10-15 pack year smoking history CARDIAC [place] type B descending aortic dissection (begins at aortic isthmus and descends into thoracic aorta) Consult vascular surgery: Dr. Healy saw patient and decided for medical management currently Esmolol drip started with BP goal <120/80 preferably 100-110/60-70 Continue to monitor blood pressure and patient for worsening pain If patient has abdominal pain or back pain will need to notify Niraj immediately Pain currently 04/23 labetalol increased to 800 mg TID Follow up with NELL and ANCA ordered by Dr. Dinero as outpatient ID Dr. Dinero follows for left knee infection Continue bactrim daily Consult wound care No syphilis RPR negative GI heart healthy 2 gm salt diet FULL CODE critical care time 35 min Consults & Procedures Consultants: vascular surgery Procedures: none Data Medications: Current Inpatient Medications Medications (Trade) Dose Ordered Sig/Kaylie Route Start Time Stop Time Status Last Admin Dose Admin Ioversol (Optiray 320) 125 ml UD PRN IV 12/20/16 09:45 12/24/16 09:44 Ondansetron HCl (Zofran Inj) 4 mg Q6H PRN IV 12/20/16 12:00 01/19/17 11:59 Morphine Sulfate (MoRPHine SULFATE INJ) 2 mg Q2H PRN IV 12/20/16 12:00 01/03/17 11:59 12/20/16 18:12 2 MG Morphine Sulfate (MoRPHine SULFATE INJ) 4 mg Q2H PRN IV 12/20/16 12:00 01/03/17 11:59 12/22/16 05:51 4 MG Trimethoprim/ Sulfamethoxazole (Septra Ds 800/ 160MG Tab) 1 tab BIDM PO 12/20/16 16:30 12/30/16 16:29 12/22/16 08:51 1 TAB Esmolol HCl 2500 mg/Prmx 250 ml @ 0 mls/hr Q0M PRN IV 12/20/16 15:00 01/19/17 10:44 12/22/16 06:19 38.4 MLS/HR Doxycycline Hyclate (Vibramycin Cap) 100 mg BID PO 12/20/16 21:00 12/30/16 20:59 12/22/16 08:51 100 MG Labetalol HCl (Normodyne Tab) 800 mg Q8 PO 12/22/16 22:00 01/19/17 21:59 UNV I & O: 24-Hour Column 12/23/16 08:00 Intake Total 1354 ml Output Total 625 ml Balance 729 ml Vital Signs: Date Time Temp Pulse Resp B/P (MAP) Pulse Ox O2 Delivery O2 Flow Rate FiO2 12/22/16 14:00 76 23 121/65 (83) 96 Room Air 12/22/16 13:00 73 21 102/64 (77) 92 Room Air 12/22/16 12:00 95 Room Air 12/22/16 12:00 37.0 66 16 120/68 (85) 95 Room Air 12/22/16 10:00 75 22 126/68 (87) 94 Room Air 12/22/16 09:00 70 22 114/63 (80) 94 Room Air 12/22/16 08:00 93 Room Air 12/22/16 08:00 36.8 80 18 93/53 (66) 95 Room Air 12/22/16 07:00 73 21 93/45 (61) 93 Room Air 12/22/16 06:00 71 12 97/48 (64) 92 Room Air 12/22/16 05:00 73 12 115/53 (73) 92 Room Air 12/22/16 04:00 36.9 72 18 101/57 (72) 94 Room Air 12/22/16 04:00 Room Air 12/22/16 03:00 70 18 106/59 (75) Room Air 12/22/16 02:00 72 19 107/55 (72) 91 Room Air 12/22/16 01:30 71 17 120/63 (82) 12/22/16 01:00 72 17 119/64 (82) 12/22/16 00:30 71 21 116/60 (78) 12/22/16 00:15 78 20 109/61 (77) 12/22/16 00:00 37.0 72 19 119/62 (81) 94 Room Air 12/22/16 00:00 Room Air 12/21/16 23:45 72 18 112/57 (75) 12/21/16 23:30 72 21 116/57 (76) 12/21/16 23:15 73 22 113/54 (73) 12/21/16 23:00 74 26 117/55 (75) 12/21/16 22:45 74 17 102/56 (71) 12/21/16 22:30 75 14 112/60 (77) 12/21/16 22:15 77 12 139/70 (93) 12/21/16 22:00 82 144/70 (94) 93 12/21/16 21:00 88 20 121/70 (87) 92 Room Air 12/21/16 20:00 Room Air 12/21/16 20:00 37.0 80 18 119/77 (91) 94 Room Air 12/21/16 19:00 86 18 126/67 (86) 93 Room Air 12/21/16 18:00 83 22 99/51 (67) 93 Room Air 12/21/16 17:30 80 16 121/64 (83) 93 Room Air 12/21/16 17:00 78 16 110/43 (65) 96 Room Air 12/21/16 16:30 81 18 119/71 (87) 95 Room Air 12/21/16 16:00 36.9 74 18 115/66 (82) 96 Room Air 12/21/16 16:00 Room Air 12/21/16 15:30 73 18 106/51 (69) 96 Room Air Laboratory Results: Last 24 Hours Test 12/21/16 16:08 12/21/16 22:06 12/22/16 05:13 Bedside Glucose 98 mg/dl 105 mg/dl White Blood Count 10.13 K/uL Red Blood Count 4.03 M/uL Hemoglobin 11.5 g/dL Hematocrit 35.3 % Mean Corpuscular Volume 87.6 fL Mean Corpuscular Hemoglobin 28.5 pg Mean Corpuscular Hemoglobin Concent 32.6 g/dl Platelet Count 270 K/uL Mean Platelet Volume 9.8 fL Neutrophils (%) (Auto) 69.2 % Lymphocytes (%) (Auto) 14.4 % Monocytes (%) (Auto) 13.7 % Eosinophils (%) (Auto) 1.9 % Basophils (%) (Auto) 0.2 % Neutrophils # (Auto) 7.01 K/uL Lymphocytes # (Auto) 1.46 K/uL Monocytes # (Auto) 1.39 K/uL Eosinophils # (Auto) 0.19 K/uL Basophils # (Auto) 0.02 K/uL RDW Standard Deviation 42.4 fL RDW Coefficient of Variation 13.1 % Immature Granulocyte % (Auto) 0.6 % Immature Granulocyte # (Auto) 0.06 K/uL Prothrombin Time 10.4 SECONDS Prothromb Time International Ratio 1.0 Activated Partial Thromboplast Time 30.4 SECONDS Partial Thromboplastin Ratio 1.2 Sodium Level 137 mmol/L Potassium Level 4.1 mmol/L Chloride Level 104 mmol/L Carbon Dioxide Level 25 mmol/L Anion Gap 8.0 mmol/L Blood Urea Nitrogen 15 mg/dl Creatinine 0.98 mg/dl Est Creatinine Clear Calc Drug Dose 116.2 ml/min Estimated GFR () 100.9 Estimated GFR (Non- 87.1 BUN/Creatinine Ratio 14.9 Random Glucose 96 mg/dl Calcium Level 8.5 mg/dl
[2016-12-22] MEDS ORDERED: NURSING VERBAL MED ORDER ONE (19:15)
--- NOTE | 2016-12-22 23:20 | Progress Note ---
Internal Med Progress Note Date of Service: Dec 22, 2016. Provider Documentation: SUBJECTIVE: Patient currently in the ICU, is being transitioned off of Beta-Juan Pablo drip to alternative PO Labetalol. Denies pain or Denies shortness of breath. I have spoken with Dr. Bravo, patient's ICU doctor and that patient staying in ICU tonight for further care and monitoring OBJECTIVE: Exam: General Appearance: WD/WN, no apparent distress Head: normocephalic, atraumatic Eyes: normal inspection, PERRL ENT: hearing grossly normal Neck: supple, no adenopathy, thyroid normal, trachea midline Respiratory/Chest: chest non-tender, lungs clear, normal breath sounds, no respiratory distress, no accessory muscle use Cardiovascular: regular rate, rhythm, no murmur Abdomen/GI: normal bowel sounds, non tender, soft, no pulsatile mass, no audible abdominal bruit Back: normal inspection, nontender Extremities/Musculoskelatal: normal inspection, no calf tenderness, left knee has dressing Neurologic/Psych: no motor/sensory deficits, alert, normal mood/affect, oriented x 3 ASSESSMENT & PLAN: 56 year old M with descending aorta disection under the care of the Intensive Care Unit, Dr. Bravo managing the patient's care, vascular service also involved. Patient currently being transitioned off of Esmolol drip to Labetalol PO. 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 In addition patient has incidental lung nodule on CT chest exam. The following is patient's CTA exam on admission from 12/20/2016 CTA: No intramural hematoma identified on the noncontrast scan. There is only minimal atherosclerotic plaquing of the aorta. Heart is moderately enlarged without pericardial effusion. Theascending thoracic aorta is within normal limits. Normal three-vessel arch configuration is present with proximal great vessels patent. 5 x 6 mm collection of contrast involving the posterior aspect of the aortic isthmus suggests penetrating ulcer or small contrast collection from the dissection. Dissection begins at the aortic isthmus extending distally through the descending thoracic aorta into the upper abdominal aorta. Celiac trunk and superior mesenteric artery originate from the true lumen. Note is made of the left gastric artery emanating directly from the aorta, also from the true lumen. Based on these images, the kidneys appear to be perfused symmetrically and adequately. No a sending thoracic aortic dissection. Pulmonary arterial tree appears unremarkable. CT CHEST: 1. Aortic dissection begins at the aortic isthmus extending distally into the descending thoracic aorta and imaged upper abdominal aorta compatible with a [place] type B dissection. Celiac trunk, left gastric and superior mesenteric artery originate from the true lumen. 2. 6 mm noncalcified pulmonary nodule of the lateral basal segment right lower lobe is unchanged from 02/05/2016 As per patient's management in ICU today: "Esmolol drip started with BP goal <120/80 preferably 100-110/60-70 Continue to monitor blood pressure and patient for worsening pain If patient has abdominal pain or back pain will need to notify Simoni immediately Pain currently 04/23 labetalol increased to 800 mg TID" in regards to dissection management and Infectious disease following patien's care for left knee infectionwhile on bactrim Vital Signs: Date Time Temp Pulse Resp B/P (MAP) Pulse Ox O2 Delivery O2 Flow Rate FiO2 12/22/16 20:00 Room Air 12/22/16 20:00 36.8 74 18 117/50 (72) 94 Room Air 12/22/16 19:30 80 27 111/61 (78) 94 12/22/16 19:15 79 18 108/57 (74) 95 12/22/16 19:00 77 15 99/42 (61) 12/22/16 18:00 82 17 117/59 (78) 91 Room Air 12/22/16 17:00 84 25 111/54 (73) 95 Room Air 12/22/16 16:01 36.9 73 25 104/50 (68) 97 Room Air 12/22/16 16:00 Room Air 12/22/16 15:01 71 15 108/63 (78) 95 Room Air 12/22/16 14:00 76 23 121/65 (83) 96 Room Air 12/22/16 13:00 73 21 102/64 (77) 92 Room Air 12/22/16 12:00 95 Room Air 12/22/16 12:00 37.0 66 16 120/68 (85) 95 Room Air 12/22/16 10:00 75 22 126/68 (87) 94 Room Air 12/22/16 09:00 70 22 114/63 (80) 94 Room Air 12/22/16 08:00 93 Room Air 12/22/16 08:00 36.8 80 18 93/53 (66) 95 Room Air 12/22/16 07:00 73 21 93/45 (61) 93 Room Air 12/22/16 06:00 71 12 97/48 (64) 92 Room Air 12/22/16 05:00 73 12 115/53 (73) 92 Room Air 12/22/16 04:00 36.9 72 18 101/57 (72) 94 Room Air 12/22/16 04:00 Room Air 12/22/16 03:00 70 18 106/59 (75) Room Air 12/22/16 02:00 72 19 107/55 (72) 91 Room Air 12/22/16 01:30 71 17 120/63 (82) 12/22/16 01:00 72 17 119/64 (82) 12/22/16 00:30 71 21 116/60 (78) 12/22/16 00:15 78 20 109/61 (77) 12/22/16 00:00 37.0 72 19 119/62 (81) 94 Room Air 12/22/16 00:00 Room Air 12/21/16 23:45 72 18 112/57 (75) 12/21/16 23:30 72 21 116/57 (76) Lab Results: Results Past 24 Hours Test 12/22/16 05:13 Range/Units White Blood Count 10.13 4.8-10.8 K/uL Red Blood Count 4.03 4.7-6.1 M/uL Hemoglobin 11.5 14.0-18.0 g/dL Hematocrit 35.3 42-52 % Mean Corpuscular Volume 87.6 80-100 fL Mean Corpuscular Hemoglobin 28.5 25-34 pg Mean Corpuscular Hemoglobin Concent 32.6 32-36 g/dl Platelet Count 270 130-400 K/uL Mean Platelet Volume 9.8 7.4-10.4 fL Neutrophils (%) (Auto) 69.2 % Lymphocytes (%) (Auto) 14.4 % Monocytes (%) (Auto) 13.7 % Eosinophils (%) (Auto) 1.9 % Basophils (%) (Auto) 0.2 % Neutrophils # (Auto) 7.01 1.4-6.5 K/uL Lymphocytes # (Auto) 1.46 1.2-3.4 K/uL Monocytes # (Auto) 1.39 0.11-0.59 K/uL Eosinophils # (Auto) 0.19 0-0.5 K/uL Basophils # (Auto) 0.02 0-0.2 K/uL RDW Standard Deviation 42.4 36.4-46.3 fL RDW Coefficient of Variation 13.1 11.5-14.5 % Immature Granulocyte % (Auto) 0.6 % Immature Granulocyte # (Auto) 0.06 0.00-0.02 K/uL Prothrombin Time 10.4 9.0-12.0 SECONDS Prothromb Time International Ratio 1.0 0.9-1.1 Activated Partial Thromboplast Time 30.4 21.0-31.0 SECONDS Partial Thromboplastin Ratio 1.2 Sodium Level 137 136-145 mmol/L Potassium Level 4.1 3.5-5.1 mmol/L Chloride Level 104 98-107 mmol/L Carbon Dioxide Level 25 21-32 mmol/L Anion Gap 8.0 3-11 mmol/L Blood Urea Nitrogen 15 7-18 mg/dl Creatinine 0.98 0.60-1.40 mg/dl Est Creatinine Clear Calc Drug Dose 116.2 ml/min Estimated GFR () 100.9 Estimated GFR (Non- 87.1 BUN/Creatinine Ratio 14.9 10-20 Random Glucose 96 70-99 mg/dl Calcium Level 8.5 8.5-10.1 mg/dl
[2016-12-23] VITALS (25 sets, daily range): BP systolic 87–135; BP diastolic 43–73; PULSE 64–82; TEMP 36.5–37.1; O2SAT 90–98
[2016-12-23] MEDS: MoRPHine SULFATE 4 MG/ML 1 ML CARP\\VIAL IV PRN ×3 (01:15→13:48)
[2016-12-23 05:10] LABS: BASO % 0.2 %; BASO ABS # 0.02 K/uL (0-0.2); COMPLETE YES; EOS % 1.4 %; HEMATOCRIT 32.2 % (42-52); IG% 0.9 %; LYMPH % 15.8 %; LYMPH ABS # 1.79 K/uL (1.2-3.4); MEAN CELL VOLUME 86.8 fL (80-100); MEAN CORPUSCULAR HEMOGLOBIN 29.6 pg (25-34); MEAN CORPUSCULAR HGB CONC 34.2 g/dl (32-36); MEAN PLATELET VOLUME 9.6 fL (7.4-10.4); NEUT % 67.7 %; PLATELET COUNT 257 K/uL (130-400); RED BLOOD COUNT 3.71 M/uL (4.7-6.1); WHITE BLOOD COUNT 11.32 K/uL (4.8-10.8)
[2016-12-23 05:24] LABS: PARTIAL THROMBOPLASTIN RATIO 1.2; PROTHROMBIN TIME (PATIENT) 10.7 SECONDS (9.0-12.0)
[2016-12-23 05:34] LABS: BUN/CREATININE RATIO 15.1 (10-20); CALCIUM 8.4 mg/dl (8.5-10.1); CREATININE 1.2 mg/dl (0.60-1.40); POTASSIUM 4.1 mmol/L (3.5-5.1)
[2016-12-23] MEDS ORDERED: LABETALOL HCL 200 MG TAB PO SCH (06:00)
[2016-12-23] MEDS ORDERED: NURSING VERBAL MED ORDER ONE (06:15)
[2016-12-23] MEDS: SULFAMETHOXAZOLE/TRIMETHOPRIM DS 800/160MG TAB PO SCH ×2 (07:40→16:40)
[2016-12-23] MEDS ORDERED: OPTIRAY 320 IV PRN (09:30)
--- NOTE | 2016-12-23 09:40 | Progress Note ---
Progress Note Date of Service: Dec 23, 2016. Subjective Sleeping this morning Problem List Medical Problems: (1) Postoperative pain of left knee Status: Acute Social History Problems: (1) Septic arthritis Status: Chronic Objective Vital Signs Vital Signs Past 12 Hours Date Time Temp Pulse Resp B/P (MAP) Pulse Ox O2 Delivery O2 Flow Rate FiO2 12/23/16 07:30 36.5 76 16 100/59 (73) 96 Room Air 12/23/16 07:30 Room Air 12/23/16 07:30 Room Air 12/23/16 06:09 78 12 117/70 (86) Room Air 12/23/16 05:00 69 12 116/54 (74) Room Air 12/23/16 04:00 37.1 79 19 108/54 (72) 94 Room Air 12/23/16 04:00 Room Air 12/23/16 03:00 82 17 101/50 (67) 12/23/16 02:00 72 13 102/54 (70) 91 Room Air 12/23/16 01:00 72 11 108/63 (78) 94 Room Air 12/23/16 00:00 Room Air 12/23/16 00:00 37.1 80 18 116/58 (77) 92 Room Air 12/22/16 23:30 73 20 106/57 (73) 12/22/16 23:00 79 15 91/53 (66) 12/22/16 22:30 76 20 90/41 (57) 12/22/16 22:00 76 12 137/73 (94) 95 Exam BP controlled Nurse claims patient is still complaining of pain in back at shoulder blade level. Laboratory and Microbiology Results Past 24 Hours Test 12/23/16 04:51 Range/Units White Blood Count 11.32 4.8-10.8 K/uL Red Blood Count 3.71 4.7-6.1 M/uL Hemoglobin 11.0 14.0-18.0 g/dL Hematocrit 32.2 42-52 % Mean Corpuscular Volume 86.8 80-100 fL Mean Corpuscular Hemoglobin 29.6 25-34 pg Mean Corpuscular Hemoglobin Concent 34.2 32-36 g/dl Platelet Count 257 130-400 K/uL Mean Platelet Volume 9.6 7.4-10.4 fL Neutrophils (%) (Auto) 67.7 % Lymphocytes (%) (Auto) 15.8 % Monocytes (%) (Auto) 14.0 % Eosinophils (%) (Auto) 1.4 % Basophils (%) (Auto) 0.2 % Neutrophils # (Auto) 7.66 1.4-6.5 K/uL Lymphocytes # (Auto) 1.79 1.2-3.4 K/uL Monocytes # (Auto) 1.59 0.11-0.59 K/uL Eosinophils # (Auto) 0.16 0-0.5 K/uL Basophils # (Auto) 0.02 0-0.2 K/uL RDW Standard Deviation 42.1 36.4-46.3 fL RDW Coefficient of Variation 13.0 11.5-14.5 % Immature Granulocyte % (Auto) 0.9 % Immature Granulocyte # (Auto) 0.10 0.00-0.02 K/uL Prothrombin Time 10.7 9.0-12.0 SECONDS Prothromb Time International Ratio 1.0 0.9-1.1 Activated Partial Thromboplast Time 30.3 21.0-31.0 SECONDS Partial Thromboplastin Ratio 1.2 Sodium Level 134 136-145 mmol/L Potassium Level 4.1 3.5-5.1 mmol/L Chloride Level 104 98-107 mmol/L Carbon Dioxide Level 25 21-32 mmol/L Anion Gap 5.0 3-11 mmol/L Blood Urea Nitrogen 18 7-18 mg/dl Creatinine 1.20 0.60-1.40 mg/dl Est Creatinine Clear Calc Drug Dose 94.9 ml/min Estimated GFR () 79.0 Estimated GFR (Non- 68.1 BUN/Creatinine Ratio 15.1 10-20 Random Glucose 97 70-99 mg/dl Calcium Level 8.4 8.5-10.1 mg/dl Imp: Type B dissection Plan: Due to the continued pain, I ordered a repeat CTA of chest, abdomen, and pelvis to see if there has been any progression of the dissection. Endovascular intervention may be needed if the dissection has progressed especially in the light of a blood pressure that has been controlled.
[2016-12-23] MEDS ORDERED: SODIUM CHLORIDE 0.9% 1000ML 1,000 ML IV SCH (09:45)
--- NOTE | 2016-12-23 11:12 | DIAGNOSTIC IMAGING REPORT ---
CT CHEST COMBO ANGIOGRAPHY CT DOSE: CLINICAL HISTORY: Type B dissection. Continued chest pain. TECHNIQUE: Unenhanced images were obtained through the thorax. The patient was then scanned in a dynamic helical fashion during intravenous administration of 120 cc Optiray 320 A dose lowering technique was utilized adhering to the principles of ALARA. COMPARISON STUDY: 12/20/2016 FINDINGS: Unenhanced images reveal no evidence of acute aortic hematoma. Postcontrast images reveal an aortic dissection beginning at the level of the aortic arch, at the level of the left subclavian artery. Multiple flaps and reentry sites are visualized within the descending thoracic aorta. No dissection flaps are visualized within the great vessels arising from the aortic arch.. The celiac and superior mesenteric arteries appear to arise from the true lumen. No dissection flap is visualized within the ascending thoracic aorta. There are trace bilateral pleural effusions. There are no pathologically enlarged axillary, mediastinal, or hilar lymph nodes. There is no pericardial effusion. There is an 8 mm right lower lobe pulmonary nodule abutting the pleural surface. IMPRESSION: 1. Type B thoracic aortic dissection beginning immediately distal to the left subclavian origin 2. 8 mm right lower lobe pulmonary nodule 3. Trace bilateral pleural effusions 4. No evidence of pericardial effusion Electronically signed by: Ladarius Stearns M.D. 12/23/2016 11:11 AM Dictated Date/Time: 12/23/2016 10:58 AM
--- NOTE | 2016-12-23 11:44 | DIAGNOSTIC IMAGING REPORT ---
CT ANGIO ABD/PELVIS COMBO CT DOSE: 2715.94 mGy.cm CLINICAL HISTORY: Continued pain. History of type B dissection. TECHNIQUE: Unenhanced images were obtained through the abdomen pelvis. The patient was then scanned in a dynamic helical fashion during intravenous administration of 120 cc of Optiray 320. A dose lowering technique was utilized adhering to the principles of ALARA. COMPARISON STUDY: 12/20/2016 FINDINGS: Unenhanced images reveal no evidence of acute aortic hematoma. The lung bases are essentially clear. No hepatic masses are visualized. No gallbladder abnormalities are visualized. There is splenic masses are visualized this arterial phase study. No pancreatic masses are visualized. There is mild left adrenal gland thickening unchanged the preceding study. There is a very subtle diminished cortical enhancement involving the upper pole the left kidney anteriorly. This was not visualized the prior study. While this could be secondary to the phase of contrast-enhancement one cannot exclude a tiny renal infarct. There are no transition zones indicate bowel obstruction. There is no evidence of acute diverticulitis. There is no evidence of acute appendicitis. There is no free air. There is no ascites. There are small bilateral fat-containing hernias right larger than left. Mildly enlarged common iliac lymph nodes are again visualized. The prostate is mildly prominent. No bladder abnormalities are visualized. There is an old healed fracture the right inferior pubic ramus. There is a dissection of the abdominal aorta. The celiac and superior mesenteric arteries arise from the true lumen. Both renal arteries arise from the true lumen. The inferior mesenteric artery arises from the true lumen. The dissection extends into both common iliac arteries. IMPRESSION: 1. No significant change in appearance of the abdominal aortic dissection which extends into the iliac arteries bilaterally. 2. The superior mesenteric, celiac, inferior mesenteric, and renal arteries appear to arise from the true lumen 3. Stable mildly enlarged common iliac lymph nodes 4. Focus of very subtle diminished enhancement involving the anterior aspect of the superior pole the left kidney. While this may relate to the phase of contrast enhancement, one cannot exclude a tiny infarct or inflammatory focus. Electronically signed by: Ladarius Stearns M.D. 12/23/2016 11:43 AM Dictated Date/Time: 12/23/2016 11:33 AM
[2016-12-23] MEDS: LABETALOL HCL 200 MG TAB PO SCH ×2 (13:47→22:11)
[2016-12-23] MEDS: SODIUM CHLORIDE 0.9% 1000ML 1,000 ML IV SCH ×2 (15:03→20:45)
--- NOTE | 2016-12-23 15:40 | Critical Care Progress Note ---
Critical Care Progress Note Date of Service Dec 23, 2016. ICU Day ICU Day Number: [address] Calloway Subjective Patient sitting upright on the side of the bed this morning appearing in no acute distress. States that his back is feeling much better this morning and is only a 1-2/10 pain in the same location as before, inferior to his left scapula. He denies any lightheadedness, chest pain, nausea, vomiting, abdominal pain, or any other acute complaints. Objective GENERAL: Awake, alert, well-appearing, in no distress HENT: Normocephalic, atraumatic. EYES: Normal conjunctiva. Sclera non-icteric. NECK: Supple. No nuchal rigidity. No JVD. RESPIRATORY: Clear to auscultation. CARDIAC: Regular rate, normal rhythm. Extremities warm and well perfused. Pulses equal. ABDOMEN: Soft, non-distended. No tenderness to palpation. No rebound or guarding. No masses. RECTAL: Deferred. MUSCULOSKELETAL: Chest examination reveals no tenderness. LOWER EXTREMITIES: Calves are equal size bilaterally and non-tender. No edema. No discoloration. Dressings over the left knee are c/d/i NEURO: Normal sensorium. No sensory or motor deficits noted. SKIN: No rash or jaundice noted. Current SOFA Score SOFA Score Response (Comments) Value PaO2/FiO2 (mmHg) < 400 1 SaO2 / FIO2 221 - 301 1 Platelets (x10) > 150 0 Bilirubin (mg/dL) < 1.2 0 Ying Coma Score 15 0 Level of Hypotension No Hypotension 0 Creatinine (mg/dL) < 1.2 0 Total 2 Previous SOFA Scores 0 Assessment & Plan The patient is a 56 year old male with a pmh of uncontrolled HTN and tobacco use that presents after repeat CT chest revealed descending aortic dissection. Patient was evaluated with repeat CT this afternoon that revealed no changes in the size of the dissection. Currently holding labetalol and esmolol due to hypotension. Goal of blood pressure management as per vascular surgery is <120/ 80 preferably 100-110/60-70. Neuro - CAM-ICU score negative - PRN 4 mg morphine sulfate for pain Resp - Outpatient Follow Up with PCP-> Regarding pulmonary nodule seen on CT (6mm in RLL), and PFTs for tobacco use - Smoking cessation consultation -10-15 pack year smoking history Cardio - [place] type B descending aortic dissection (begins at aortic isthmus and descends into thoracic aorta) - Repeat CTA today (12/23): No significant change in appearance of the abdominal aortic dissection which extends into the iliac arteries bilaterally. - CTA was repeated due to continued pain despite appropriate blood pressure control - Vascular surgery - currently managing the dissection medically with blood pressure control - Current BP goal <120/80 preferably 100-110/60-70 - Holding Esmolol drip and Labetalol 800mg TID due to hypotension this morning - IV NS @ 100mls/hr --> Scheduled to stop tomorrow afternoon - Continue to monitor blood pressure and patient for worsening pain - If patient has abdominal pain or back pain will need to notify Simoni immediately - Will not treat patient with ALAYNA inhibitors due to presence of aortic dissection - Added Atorvastatin 40mg qAM to management - Ordered fasting lipid panel for tomorrow morning - Tylenol PO for pain ID - Dr. Dinero follows for left knee infection - Continue Bactrim 800 DS daily --> Complete 10 day course - Wound Care on board - RPR negative GI - Heart healthy 2 gm salt diet DVT - SCDs - Patient ambulatory so no chemical prophylaxis added Resident Physician Supervision Note: Dr. Hugo was resident physician during care of patient. I separately evaluated patient and did history and exam. I discussed the case with the resident and generally agree with the findings and plan. Type B dissection, requiring blood pressure control. No clear indication for ALAYNA inhibitor's at this time, we will proceed with beta blockers. He may require calcium channel divya, started statin therapy, will require follow-up as outpatient for pulmonary nodule. Stable for downgraded out of ICU. Documented By: Last Calloway DO Consults & Procedures Consultants: vascular surgery Procedures: none Data Medications: Current Inpatient Medications Medications (Trade) Dose Ordered Sig/Kaylie Route Start Time Stop Time Status Last Admin Dose Admin Ondansetron HCl (Zofran Inj) 4 mg Q6H PRN IV 12/20/16 12:00 01/19/17 11:59 Trimethoprim/ Sulfamethoxazole (Septra Ds 800/ 160MG Tab) 1 tab BIDM PO 12/20/16 16:30 12/30/16 16:29 12/23/16 07:40 1 TAB Labetalol HCl (Normodyne Tab) 800 mg Q8 PO 12/22/16 22:00 01/19/17 21:59 Future hold 12/23/16 13:47 800 MG Sodium Chloride 1,000 ml @ 100 mls/hr Q10H IV 12/23/16 15:00 01/22/17 09:44 12/23/16 15:03 100 MLS/HR Acetaminophen (Tylenol Tab) 650 mg Q4H PRN PO 12/23/16 15:00 01/22/17 14:59 I & O: 24-Hour Column 12/24/16 07:59 Intake Total 1112 ml Output Total 600 ml Balance 512 ml Vital Signs: Date Time Temp Pulse Resp B/P (MAP) Pulse Ox O2 Delivery O2 Flow Rate FiO2 12/23/16 15:01 36.7 76 16 95 12/23/16 13:23 36.7 76 16 122/70 (87) 95 Room Air 12/23/16 13:00 82 19 122/70 (83) 90 12/23/16 12:00 70 2 135/58 (73) 95 12/23/16 11:40 Room Air 12/23/16 11:30 36.7 70 16 131/73 (92) 95 Room Air 12/23/16 11:06 131/73 (77) 12/23/16 10:03 66 12 115/61 (68) 96 12/23/16 10:00 70 18 94 12/23/16 09:00 70 18 102/55 (61) 93 12/23/16 08:30 64 35 106/43 (57) 94 12/23/16 08:00 73 19 110/57 (64) 96 12/23/16 07:30 36.5 76 16 100/59 (73) 96 Room Air 12/23/16 07:30 Room Air 12/23/16 07:30 Room Air 12/23/16 07:30 81 22 92/55 (69) 91 12/23/16 07:22 67 17 100/59 (62) 93 12/23/16 07:03 69 4 88/55 (62) 12/23/16 07:00 68 22 87/47 (51) 12/23/16 06:09 78 12 117/70 (86) Room Air 12/23/16 05:00 69 12 116/54 (74) Room Air 12/23/16 04:00 37.1 79 19 108/54 (72) 94 Room Air 12/23/16 04:00 Room Air 12/23/16 03:00 82 17 101/50 (67) 12/23/16 02:00 72 13 102/54 (70) 91 Room Air 12/23/16 01:00 72 11 108/63 (78) 94 Room Air 12/23/16 00:00 Room Air 12/23/16 00:00 37.1 80 18 116/58 (77) 92 Room Air 12/22/16 23:30 73 20 106/57 (73) 12/22/16 23:00 79 15 91/53 (66) 12/22/16 22:30 76 20 90/41 (57) 12/22/16 22:00 76 12 137/73 (94) 95 12/22/16 21:30 76 14 114/62 (79) 90 12/22/16 20:00 Room Air 12/22/16 20:00 36.8 74 18 117/50 (72) 94 Room Air 12/22/16 19:30 80 27 111/61 (78) 94 12/22/16 19:15 79 18 108/57 (74) 95 12/22/16 19:00 77 15 99/42 (61) 12/22/16 18:00 82 17 117/59 (78) 91 Room Air 12/22/16 17:00 84 25 111/54 (73) 95 Room Air 12/22/16 16:01 36.9 73 25 104/50 (68) 97 Room Air 12/22/16 16:00 Room Air Laboratory Results: Last 24 Hours Test 12/23/16 04:51 White Blood Count 11.32 K/uL Red Blood Count 3.71 M/uL Hemoglobin 11.0 g/dL Hematocrit 32.2 % Mean Corpuscular Volume 86.8 fL Mean Corpuscular Hemoglobin 29.6 pg Mean Corpuscular Hemoglobin Concent 34.2 g/dl Platelet Count 257 K/uL Mean Platelet Volume 9.6 fL Neutrophils (%) (Auto) 67.7 % Lymphocytes (%) (Auto) 15.8 % Monocytes (%) (Auto) 14.0 % Eosinophils (%) (Auto) 1.4 % Basophils (%) (Auto) 0.2 % Neutrophils # (Auto) 7.66 K/uL Lymphocytes # (Auto) 1.79 K/uL Monocytes # (Auto) 1.59 K/uL Eosinophils # (Auto) 0.16 K/uL Basophils # (Auto) 0.02 K/uL RDW Standard Deviation 42.1 fL RDW Coefficient of Variation 13.0 % Immature Granulocyte % (Auto) 0.9 % Immature Granulocyte # (Auto) 0.10 K/uL Prothrombin Time 10.7 SECONDS Prothromb Time International Ratio 1.0 Activated Partial Thromboplast Time 30.3 SECONDS Partial Thromboplastin Ratio 1.2 Sodium Level 134 mmol/L Potassium Level 4.1 mmol/L Chloride Level 104 mmol/L Carbon Dioxide Level 25 mmol/L Anion Gap 5.0 mmol/L Blood Urea Nitrogen 18 mg/dl Creatinine 1.20 mg/dl Est Creatinine Clear Calc Drug Dose 94.9 ml/min Estimated GFR () 79.0 Estimated GFR (Non- 68.1 BUN/Creatinine Ratio 15.1 Random Glucose 97 mg/dl Calcium Level 8.4 mg/dl Resident Tracking Resident Involvement: Resident Care Provided Care Provided: Adult Hospital Medicine
[2016-12-23] MEDS: ACETAMINOPHEN 325 MG TAB PO PRN ×2 (16:40→22:11)
--- NOTE | 2016-12-23 17:01 | Progress Note ---
Internal Med Progress Note Date of Service: Dec 23, 2016. Provider Documentation: SUBJECTIVE: Patient currently in the ICU to be transferred to the care of hospitalist medical service on telemetry floor. Patient denies chest pain or shortness of breath or abdominal pain. Denies problems with urinating or defecating. Denies headache. OBJECTIVE: Exam: General Appearance: WD/WN, no apparent distress Head: normocephalic, atraumatic Eyes: normal inspection, PERRL ENT: hearing grossly normal Neck: supple, no adenopathy, thyroid normal, trachea midline Respiratory/Chest: chest non-tender, lungs clear, normal breath sounds, no respiratory distress, no accessory muscle use Cardiovascular: regular rate, rhythm, no murmur Abdomen/GI: normal bowel sounds, non tender, soft, no pulsatile mass, no audible abdominal bruit Back: normal inspection, nontender Extremities/Musculoskelatal: normal inspection, no calf tenderness, left knee has dressing Neurologic/Psych: no motor/sensory deficits, alert, normal mood/affect, oriented x 3 ASSESSMENT & PLAN: 56 year old M with descending aorta dissection under the care of the Intensive Care Unit and now being transferred to medicine hospitalist service after transitioned off of Esmolol drip to Labetalol PO. 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 In addition patient has incidental lung nodule on CT chest exam. Plan: -cardiac telemetry -follow up with TTE s/p diagnosis and management of descending aortic dissection -continue with labetalol 800 mg q8 hours -continue with IV fluids 100 cc/hr -acetaminophen 650 mg q4h prn for pain -patient on bactrim for history of chronic left knee injury/infection Imaging: The following is patient's CTA exam on admission from 12/20/2016 CTA: No intramural hematoma identified on the noncontrast scan. There is only minimal atherosclerotic plaquing of the aorta. Heart is moderately enlarged without pericardial effusion. Theascending thoracic aorta is within normal limits. Normal three-vessel arch configuration is present with proximal great vessels patent. 5 x 6 mm collection of contrast involving the posterior aspect of the aortic isthmus suggests penetrating ulcer or small contrast collection from the dissection. Dissection begins at the aortic isthmus extending distally through the descending thoracic aorta into the upper abdominal aorta. Celiac trunk and superior mesenteric artery originate from the true lumen. Note is made of the left gastric artery emanating directly from the aorta, also from the true lumen. Based on these images, the kidneys appear to be perfused symmetrically and adequately. No a sending thoracic aortic dissection. Pulmonary arterial tree appears unremarkable. CT CHEST on admission from 12/20/2016 1. Aortic dissection begins at the aortic isthmus extending distally into the descending thoracic aorta and imaged upper abdominal aorta compatible with a [place] type B dissection. Celiac trunk, left gastric and superior mesenteric artery originate from the true lumen. 2. 6 mm noncalcified pulmonary nodule of the lateral basal segment right lower lobe is unchanged from 02/05/2016 CT ANGIO ABD/PELVIS COMBO on 12/23/2016 1. No significant change in appearance of the abdominal aortic dissection which extends into the iliac arteries bilaterally. 2. The superior mesenteric, celiac, inferior mesenteric, and renal arteries appear to arise from the true lumen 3. Stable mildly enlarged common iliac lymph nodes 4. Focus of very subtle diminished enhancement involving the anterior aspect of the superior pole the left kidney. While this may relate to the phase of contrast enhancement, one cannot exclude a tiny infarct or inflammatory focus. CT CHEST COMBO ANGIOGRAPHY 12/20/2016 IMPRESSION: 1. Type B thoracic aortic dissection beginning immediately distal to the left subclavian origin 2. 8 mm right lower lobe pulmonary nodule 3. Trace bilateral pleural effusions 4. No evidence of pericardial effusion Vital Signs: Date Time Temp Pulse Resp B/P (MAP) Pulse Ox O2 Delivery O2 Flow Rate FiO2 12/23/16 16:29 Room Air 12/23/16 15:01 36.7 76 16 95 12/23/16 15:00 36.9 69 20 110/59 (76) 96 Room Air 12/23/16 13:23 36.7 76 16 122/70 (87) 95 Room Air 12/23/16 13:00 82 19 122/70 (83) 90 12/23/16 12:00 70 2 135/58 (73) 95 12/23/16 11:40 Room Air 12/23/16 11:30 36.7 70 16 131/73 (92) 95 Room Air 12/23/16 11:06 131/73 (77) 12/23/16 10:03 66 12 115/61 (68) 96 12/23/16 10:00 70 18 94 12/23/16 09:00 70 18 102/55 (61) 93 12/23/16 08:30 64 35 106/43 (57) 94 12/23/16 08:00 73 19 110/57 (64) 96 12/23/16 07:30 36.5 76 16 100/59 (73) 96 Room Air 12/23/16 07:30 Room Air 12/23/16 07:30 Room Air 12/23/16 07:30 81 22 92/55 (69) 91 12/23/16 07:22 67 17 100/59 (62) 93 12/23/16 07:03 69 4 88/55 (62) 12/23/16 07:00 68 22 87/47 (51) 12/23/16 06:09 78 12 117/70 (86) Room Air 12/23/16 05:00 69 12 116/54 (74) Room Air 12/23/16 04:00 37.1 79 19 108/54 (72) 94 Room Air 12/23/16 04:00 Room Air 12/23/16 03:00 82 17 101/50 (67) 12/23/16 02:00 72 13 102/54 (70) 91 Room Air 12/23/16 01:00 72 11 108/63 (78) 94 Room Air 12/23/16 00:00 Room Air 12/23/16 00:00 37.1 80 18 116/58 (77) 92 Room Air 12/22/16 23:30 73 20 106/57 (73) 12/22/16 23:00 79 15 91/53 (66) 12/22/16 22:30 76 20 90/41 (57) 12/22/16 22:00 76 12 137/73 (94) 95 12/22/16 21:30 76 14 114/62 (79) 90 12/22/16 20:00 Room Air 12/22/16 20:00 36.8 74 18 117/50 (72) 94 Room Air 12/22/16 19:30 80 27 111/61 (78) 94 12/22/16 19:15 79 18 108/57 (74) 95 12/22/16 19:00 77 15 99/42 (61) 12/22/16 18:00 82 17 117/59 (78) 91 Room Air Lab Results: Results Past 24 Hours Test 12/23/16 04:51 Range/Units White Blood Count 11.32 4.8-10.8 K/uL Red Blood Count 3.71 4.7-6.1 M/uL Hemoglobin 11.0 14.0-18.0 g/dL Hematocrit 32.2 42-52 % Mean Corpuscular Volume 86.8 80-100 fL Mean Corpuscular Hemoglobin 29.6 25-34 pg Mean Corpuscular Hemoglobin Concent 34.2 32-36 g/dl Platelet Count 257 130-400 K/uL Mean Platelet Volume 9.6 7.4-10.4 fL Neutrophils (%) (Auto) 67.7 % Lymphocytes (%) (Auto) 15.8 % Monocytes (%) (Auto) 14.0 % Eosinophils (%) (Auto) 1.4 % Basophils (%) (Auto) 0.2 % Neutrophils # (Auto) 7.66 1.4-6.5 K/uL Lymphocytes # (Auto) 1.79 1.2-3.4 K/uL Monocytes # (Auto) 1.59 0.11-0.59 K/uL Eosinophils # (Auto) 0.16 0-0.5 K/uL Basophils # (Auto) 0.02 0-0.2 K/uL RDW Standard Deviation 42.1 36.4-46.3 fL RDW Coefficient of Variation 13.0 11.5-14.5 % Immature Granulocyte % (Auto) 0.9 % Immature Granulocyte # (Auto) 0.10 0.00-0.02 K/uL Prothrombin Time 10.7 9.0-12.0 SECONDS Prothromb Time International Ratio 1.0 0.9-1.1 Activated Partial Thromboplast Time 30.3 21.0-31.0 SECONDS Partial Thromboplastin Ratio 1.2 Sodium Level 134 136-145 mmol/L Potassium Level 4.1 3.5-5.1 mmol/L Chloride Level 104 98-107 mmol/L Carbon Dioxide Level 25 21-32 mmol/L Anion Gap 5.0 3-11 mmol/L Blood Urea Nitrogen 18 7-18 mg/dl Creatinine 1.20 0.60-1.40 mg/dl Est Creatinine Clear Calc Drug Dose 94.9 ml/min Estimated GFR () 79.0 Estimated GFR (Non- 68.1 BUN/Creatinine Ratio 15.1 10-20 Random Glucose 97 70-99 mg/dl Calcium Level 8.4 8.5-10.1 mg/dl
[2016-12-24 03:05] VITALS: BP 130/65; PULSE 72; TEMP 36.8; O2SAT 98
[2016-12-24] MEDS: ACETAMINOPHEN 325 MG TAB PO PRN ×2 (04:08→10:42)
[2016-12-24] MEDS: LABETALOL HCL 200 MG TAB PO SCH ×2 (05:18→13:25)
[2016-12-24] MEDS: SODIUM CHLORIDE 0.9% 1000ML 1,000 ML IV SCH (05:19)
[2016-12-24] MEDS ORDERED: PERFLUTREN LIPID MICROSPHERE (DEFINITY) IV ONE (07:11)
[2016-12-24 07:15] LABS: BASO % 0.3 %; BASO ABS # 0.03 K/uL (0-0.2); COMPLETE YES; EOS % 1.4 %; HEMATOCRIT 33.6 % (42-52); IG% 0.8 %; LYMPH % 12.2 %; MEAN CELL VOLUME 87.5 fL (80-100); MEAN CORPUSCULAR HEMOGLOBIN 28.1 pg (25-34); MEAN CORPUSCULAR HGB CONC 32.1 g/dl (32-36); MEAN PLATELET VOLUME 9.7 fL (7.4-10.4); MONO % 11.8 %; NEUT % 73.5 %; PLATELET COUNT 314 K/uL (130-400); RED BLOOD COUNT 3.84 M/uL (4.7-6.1); WHITE BLOOD COUNT 9.83 K/uL (4.8-10.8)
[2016-12-24 07:24] LABS: PARTIAL THROMBOPLASTIN RATIO 1.2; PROTHROMBIN TIME (PATIENT) 10.7 SECONDS (9.0-12.0)
[2016-12-24 07:34] VITALS: BP 108/48; PULSE 69; TEMP 36.7; O2SAT 96
[2016-12-24 07:40] LABS: BUN/CREATININE RATIO 14.6 (10-20); CALCIUM 8.6 mg/dl (8.5-10.1); POTASSIUM 4.1 mmol/L (3.5-5.1)
[2016-12-24 07:43] LABS: CHOLESTEROL/HDL RATIO 2.6
[2016-12-24] MEDS: SULFAMETHOXAZOLE/TRIMETHOPRIM DS 800/160MG TAB PO SCH (08:29)
--- NOTE | 2016-12-24 08:45 | Progress Note ---
Progress Note Date of Service Dec 24, 2016. Progress Note Pt advised that his CTA indicates his dissection is stable and reassured that no surgical intervention is planned at this time. Will see in office in 4 wks with a new CTA at that time. Continue HTN control per medicine. Please call if new pain develops or concern for further dissection.
[2016-12-24] MEDS ORDERED: ATORVASTATIN 40 MG TAB PO SCH (09:00)
--- NOTE | 2016-12-24 10:03 | Progress Note ---
Subjective Date of Service: Dec 24, 2016. Subjective Pt evaluation today including: conversation w/ patient, physical exam, lab review, review of studies, review of inpatient medication list Saw/examined the patient in room 211 He's doing well today No problems/issues to note; denies significant pain, mostly controlled with Tylenol No chest pain/shortness of breath No other problems to note Problem List Medical Problems: (1) Postoperative pain of left knee Status: Acute Social History Problems: (1) Septic arthritis Status: Chronic Review of Systems Constitutional: No fever, No chills Respiratory: No cough, No sputum, No wheezing, No shortness of breath, No dyspnea on exertion, No dyspnea at rest, No hemoptysis Cardiac: No chest pain, No edema, No palpitations Abdomen: No pain, No nausea, No vomiting, No diarrhea Musculoskeletal: + problem reported (L scapular pain which is much improved) Medications Current Inpatient Medications Medications (Trade) Dose Ordered Sig/Kaylie Route Start Time Stop Time Status Last Admin Dose Admin Ondansetron HCl (Zofran Inj) 4 mg Q6H PRN IV 12/20/16 12:00 01/19/17 11:59 Trimethoprim/ Sulfamethoxazole (Septra Ds 800/ 160MG Tab) 1 tab BIDM PO 12/20/16 16:30 12/30/16 16:29 12/24/16 08:29 1 TAB Labetalol HCl (Normodyne Tab) 800 mg Q8 PO 12/22/16 22:00 01/19/17 21:59 Future hold 12/24/16 05:18 800 MG Sodium Chloride 1,000 ml @ 100 mls/hr Q10H IV 12/23/16 15:00 01/22/17 09:44 12/24/16 05:19 100 MLS/HR Acetaminophen (Tylenol Tab) 650 mg Q4H PRN PO 12/23/16 15:00 01/22/17 14:59 12/24/16 04:08 650 MG Atorvastatin Calcium (Lipitor Tab) 40 mg QAM PO 12/24/16 09:00 01/23/17 08:59 12/24/16 08:29 40 MG Objective Vital Signs Date Time Temp Pulse Resp B/P (MAP) Pulse Ox O2 Delivery O2 Flow Rate FiO2 12/24/16 07:34 36.7 69 20 108/48 (68) 96 Room Air 12/24/16 04:00 Room Air 12/24/16 03:05 36.8 72 20 130/65 (86) 98 Room Air 12/24/16 00:00 Room Air 12/23/16 23:50 37.0 69 20 103/53 (70) 93 Room Air 12/23/16 20:01 37.0 69 18 131/72 (91) 98 Room Air 12/23/16 20:00 Room Air 12/23/16 16:29 Room Air 12/23/16 15:01 36.7 76 16 95 12/23/16 15:00 36.9 69 20 110/59 (76) 96 Room Air 12/23/16 13:23 36.7 76 16 122/70 (87) 95 Room Air 12/23/16 13:00 82 19 122/70 (83) 90 12/23/16 12:00 70 2 135/58 (73) 95 12/23/16 11:40 Room Air 12/23/16 11:30 36.7 70 16 131/73 (92) 95 Room Air 12/23/16 11:06 131/73 (77) 12/23/16 10:03 66 12 115/61 (68) 96 12/23/16 10:00 70 18 94 Physical Exam General Appearance: no apparent distress Respiratory/Chest: lungs clear, normal breath sounds, no respiratory distress, no accessory muscle use Cardiovascular: regular rate, rhythm, no edema, no murmur Abdomen: normal bowel sounds, non tender, soft Extremities: normal inspection, no pedal edema Neurologic/Psychiatric: no motor/sensory deficits, alert, normal mood/affect Laboratory Results Last 24 Hours Test 12/24/16 06:39 White Blood Count 9.83 K/uL Red Blood Count 3.84 M/uL Hemoglobin 10.8 g/dL Hematocrit 33.6 % Mean Corpuscular Volume 87.5 fL Mean Corpuscular Hemoglobin 28.1 pg Mean Corpuscular Hemoglobin Concent 32.1 g/dl Platelet Count 314 K/uL Mean Platelet Volume 9.7 fL Neutrophils (%) (Auto) 73.5 % Lymphocytes (%) (Auto) 12.2 % Monocytes (%) (Auto) 11.8 % Eosinophils (%) (Auto) 1.4 % Basophils (%) (Auto) 0.3 % Neutrophils # (Auto) 7.22 K/uL Lymphocytes # (Auto) 1.20 K/uL Monocytes # (Auto) 1.16 K/uL Eosinophils # (Auto) 0.14 K/uL Basophils # (Auto) 0.03 K/uL RDW Standard Deviation 42.3 fL RDW Coefficient of Variation 13.1 % Immature Granulocyte % (Auto) 0.8 % Immature Granulocyte # (Auto) 0.08 K/uL Prothrombin Time 10.7 SECONDS Prothromb Time International Ratio 1.0 Activated Partial Thromboplast Time 32.0 SECONDS Partial Thromboplastin Ratio 1.2 Sodium Level 139 mmol/L Potassium Level 4.1 mmol/L Chloride Level 108 mmol/L Carbon Dioxide Level 23 mmol/L Anion Gap 8.0 mmol/L Blood Urea Nitrogen 15 mg/dl Creatinine 1.00 mg/dl Est Creatinine Clear Calc Drug Dose 115.0 ml/min Estimated GFR () 98.5 Estimated GFR (Non- 84.9 BUN/Creatinine Ratio 14.6 Random Glucose 93 mg/dl Calcium Level 8.6 mg/dl Triglycerides Level 100 mg/dl Cholesterol Level 125 mg/dl HDL Cholesterol 49 mg/dl LDL Cholesterol, Calculated 56 mg/dl VLDL Cholesterol, Calculated 20 mg/dl Cholesterol/HDL Ratio 2.6 Assessment and Plan This is a 56yo M with a PMH of uncontrolled HTN, tobacco use disorder and h/o post-op knee infection who presents after an abnormal CT scan this morning showed a descending aortic dissection. New type B descending aortic dissection patient was admitted with a descending aortic dissection noted on CT was immediately started no IV Esmolol and sent to the ICU vascular surgery was consulted - non-surgical dissection was transitioned onto IV Labetalol and now Labetalol 800mg [id number] repeat imagining suggested no change in the dissection plan is to discharge patient home on oral Labetalol 800mg q8 to see vascular surgery as outpatient and repeat imagining in 4 weeks continue statin can add CCB if blood pressure does not remain <110 as outpatient HTN goal is to have tight BP control for the descending aortic dissection continue Labetalol 800mg q8 Tobacco use disorder interesting in quitting, will attempt on his own PCP should follow-up Post-op L knee infection Continue Bactrim follow-up with ID as outpatient (Dr. Dinero) Pulmonary nodule on CT Incidental finding 6 mm noncalcified pulmonary nodule of the lateral basal segment right lower lobe is unchanged from 02/05/2016 Follow up with PCP in 6-12 months is recommended, per guidelines DVT ppx SCDs FULL CODE
[2016-12-24] MEDS ORDERED: LBT200 PO (10:10)
[2016-12-24] MEDS ORDERED: LPT40 PO (10:10)
--- NOTE | 2016-12-24 10:16 | Discharge Instructions ---
Discharge Instructions Date of Service Dec 24, 2016. Admission Reason for Admission: Descending Thoracic Aortic Dissetion Discharge Discharge Diagnosis / Problem: Descending Thoracic Aortic Dissection Discharge Goals Goal(s): Decrease discomfort, Improve function, Diagnostic testing, Therapeutic intervention Activity Recommendations Activity Limitations: resume your previous activity . Instructions / Follow-Up Instructions / Follow-Up Please follow-up with your primary care physician - you will get a phone call with a new primary care doctor and date/time for an appointment Please follow-up with vascular surgery, Dr. Healy * you will need repeat CT scan in 4 weeks * It is imperative that you take Labetalol 800mg three times daily * Please take Lipitor 40mg every day * in 6-12 months - you will need a repeat CT scan of the chest to follow-up on a lung nodule Follow-up with infectious disease, Dr. Dinero, regarding the knee infection - continue Bactrim for now Stop smoking and speak with your primary care if you need more help doing so Current Hospital Diet Patient's current hospital diet: Low Sodium Diet (2gm Na), AHA Diet (Heart Healthy) Discharge Diet Recommended Diet: AHA Diet (Heart Healthy), Low Sodium Diet (2gm Na) Pending Studies Studies pending at discharge: no Laboratory Results Lipid Panel Test 12/24/16 06:39 Range/Units Triglycerides Level 100 0-150 mg/dl Cholesterol Level 125 0-200 mg/dl HDL Cholesterol 49 mg/dl Cholesterol/HDL Ratio 2.6 LDL Cholesterol, Calculated 56 mg/dl Medical Emergencies . Who to Call and When: Medical Emergencies: If at any time you feel your situation is an emergency, please call 911 immediately. . Non-Emergent Contact Non-Emergency issues call your: Primary Care Provider . . "Provider Documentation" section prepared by Philip Kohli. . VTE Core Measure Inpt VTE Proph given/why not?: SCD's
--- NOTE | 2016-12-24 10:18 | Discharge Summary ---
Discharge Summary Date of Service Dec 24, 2016. Discharge Summary Admission Date: Dec 20, 2016 at 11:50 Discharge Date: Dec 24, 2016 Discharge Disposition: Home Principal Diagnosis: Descending Thoracic Aortic Dissection Medication Reconciliation New Medications: Atorvastatin (Atorvastatin Calcium) 40 Mg Tab 40 MG PO QAM for 30 Days, #30 TAB Labetalol HCl (Labetalol HCl) 200 Mg Tab 800 MG PO Q8 for 30 Days, #360 TAB Continued Medications: Acetaminophen (Tylenol Extra Strength) 500 Mg Tab 1000 MG PO Q8 PRN for Pain for 30 Days Aspirin (Aspirin Ec) 81 Mg Tab 81 MG PO BID for 30 Days Oxycodone HCl (Oxycodone HCl) 5 Mg Tab 5-10 MG PO Q4H PRN for Pain, #60 Sulfa/Trimethoprim (Bactrim Ds 800MG/160MG) Tab 1 TAB PO BID, #6 TAB [Prednisone] () 2 TAB PO DAILY Admission Information HPI (per Admitting provider): This is a 56yo M with a PMH of uncontrolled HTN, tobacco use disorder and h/o post-op knee infection who presents after an abnormal CT scan this morning showed a descending aortic dissection. Patient states that 6 days ago, he was at a picnic when he sneezed and immediately "felt a tear" in his back. Describes this immediate pain as ripping and constant in a band-like distribution across his lower back. Associated symptoms include nausea and vomiting as well as an eventual tight feel in his stomach as well. Since patient had just been eating at the picnic, he assumed he was experiencing food poisoning and returned home. By the next morning, back pain had relocated from his lower back to a sharp pain beneath his L shoulder blade. Went to the [facility], where he had a CT scan of abdomen/pelvis and was diagnosed with aortitis and sent home with a prednisone taper. Continued to experience pain around L shoulder blade, as well as a lessened degree of nausea/vomiting throughout the rest of the week. Was feeling almost back to his baseline when he went to a follow-up ID appt with Dr. Dinero this morning. After describing the recent events to Dr. Dinero, a repeat CT abd/pelvis was ordered, which showed a descending aortic dissection. Patient was sent to ED for further evaluation. Currently endorses a 2/10 upper back pain under L shoulder and states that he took an oxycodone and 2 tylenol [facility]. Denies any headache, lightheadedness, CP, SOB, abd pain, nausea/vomiting. Has been told in the past that he has HTN but has never taken medication for it. Does not have a PCP. Has ~10 pack years from smoking cigarettes. Denies drug use. Physical Exam (per Admitting): General Appearance: WD/WN, no apparent distress Head: normocephalic, atraumatic Eyes: normal inspection, PERRL ENT: hearing grossly normal Neck: supple, no adenopathy, thyroid normal, trachea midline Respiratory/Chest: chest non-tender, lungs clear, normal breath sounds, no respiratory distress, no accessory muscle use Cardiovascular: regular rate, rhythm, no murmur Abdomen/GI: normal bowel sounds, non tender, soft, no pulsatile mass Back: normal inspection (TTP under L shoulder blade ), no CVA tenderness Extremities/Musculoskelatal: normal inspection, no calf tenderness, normal capillary refill, no pedal edema Neurologic/Psych: no motor/sensory deficits, alert, normal mood/affect, oriented x 3 Skin: normal color, warm/dry, no rash, + pertinent finding (L knee with presence of erythema and purulent drainage surrounding vertical incision site. ) Hospital Course This is a 56yo M with a PMH of uncontrolled HTN, tobacco use disorder and h/o post-op knee infection who presents after an abnormal CT scan this morning showed a descending aortic dissection. Clay type B descending aortic dissection patient was admitted with a descending aortic dissection noted on CT was immediately started no IV Esmolol and sent to the ICU vascular surgery was consulted - non-surgical dissection was transitioned onto IV Labetalol and now Labetalol 800mg [id number] repeat imagining suggested no change in the dissection plan is to discharge patient home on oral Labetalol 800mg q8 to see vascular surgery as outpatient and repeat imagining in 4 weeks continue statin can add CCB if blood pressure does not remain <110 as outpatient HTN goal is to have tight BP control for the descending aortic dissection continue Labetalol 800mg q8 Tobacco use disorder interesting in quitting, will attempt on his own PCP should follow-up Post-op L knee infection Continue Bactrim follow-up with ID as outpatient (Dr. Dinero) Pulmonary nodule on CT Incidental finding 6 mm noncalcified pulmonary nodule of the lateral basal segment right lower lobe is unchanged from 02/05/2016 Follow up with PCP in 6-12 months is recommended, per guidelines DVT ppx SCDs FULL CODE Total time spent on discharge = 45 minutes This includes examination of the patient, discharge planning, medication reconciliation, and communication with other providers. Discharge Instructions Please follow-up with your primary care physician - you will get a phone call with a new primary care doctor and date/time for an appointment Please follow-up with vascular surgery, Dr. Healy * you will need repeat CT scan in 4 weeks * It is imperative that you take Labetalol 800mg three times daily * Please take Lipitor 40mg every day * in 6-12 months - you will need a repeat CT scan of the chest to follow-up on a lung nodule Follow-up with infectious disease, Dr. Dinero, regarding the knee infection - continue Bactrim for now Stop smoking and speak with your primary care if you need more help doing so
[2016-12-24 10:37] VITALS: BP 137/74; PULSE 64; TEMP 37.1; O2SAT 97
[2016-12-24 13:36] VITALS: BP 137/74; PULSE 64; TEMP 37.1; O2SAT 97
--- NOTE | 2016-12-24 16:15 | ECHOCARDIOGRAM REPORT ---
*NOTICE TO RECEIVING DEMOCRAT AGENCY This information is strictly Confidential and protected under [place] law. [place] law prohibits you from making any further disclosure of this information unless further disclosure is expressly permitted by the written consent of the person to whom it pertains or is authorized by law. A general authorization for the release of medical or other information is not sufficient for this purpose. Hospital accepts no responsibility if the information is made available to any other person, INCLUDING THE PATIENT. Interpretation Summary * Name: LEXIS SHARP Study Date: 12/24/2016 06:43 AM BP: 108/48 mmHg * Patient Location: .2E\S\E211\S\1 HR: 69 * : 1960 (M/d/yyyy) Gender: Male Height: 76 in * Age: 56 yrs Ethnicity: CA Weight: 240 lb * Ordering Physician: Lucas Portillo * Referring Physician: Bobby Dinero * Performed By: Jennifer Jones RDCS * * Reason For Study: DISSECTION AORTA * BSA: 2.4 m2 * -- Conclusions -- * The left ventricle is normal in size. * Left ventricular systolic function is normal. * Ejection Fraction = 60-65%. * No obvious dissection could be visualized. * Aortic root qualitatively enlarged. Ascending aorta not well visualized. * Recommend CT angio if clinically indicated to R/O aortic dissection or aneurysm. Procedure Details * A contrast injection of Definity was performed to improve assessment of LV function. * Contrast was injected into an intravenous site in the left arm. * One vial of Definity ultrasound contrast was diluted in normal saline to a total volume of 10 ml. A total of '2' ml of solution was administered during imaging. * Lot # [id number] of Definity utilized for procedure. * Expiration date JAN 29. * The attending nurse who injected the contrast agent was BAN RAMOS RN. Left Ventricle * The left ventricle is normal in size. * Ejection Fraction = 60-65%. * Left ventricular systolic function is normal. Right Ventricle * The right ventricle is normal size. * The right ventricular systolic function is normal. Atria * The left atrial size is normal. * Right atrial size is normal. * The interatrial septum is intact with no evidence for an atrial septal defect. Mitral Valve * The mitral valve anatomy is normal. * Significant mitral regurgitation is absent. Tricuspid Valve * The tricuspid valve anatomy is normal. * Significant tricuspid regurgitation is absent. Aortic Valve * The aortic valve is trileaflet. * Aortic stenosis is absent. Pulmonic Valve * The pulmonic valve is not well seen, but is grossly normal. * Trace pulmonic valvular regurgitation. Great Vessels * No obvious dissection could be visualized. * Aortic root qualitatively enlarged. Ascending aorta not well visualized. Recommend CT angio if clinically indicated to R/O aortic dissection or aneurysm. Pericardium/Pleural * There is no pericardial effusion. MMode 2D Measurements and Calculations IVSd 1.5 cm IVSs 2.2 cm LVIDd 4.4 cm LVIDs 3.0 cm LVPWd 1.4 cm LVPWs 2.0 cm IVS/LVPW 1.1 FS 32.8 % EDV(Teich) 89.4 ml ESV(Teich) 34.5 ml EF(Teich) 61.5 % EDV(cubed) 87.3 ml ESV(cubed) 26.5 ml EF(cubed) 69.7 % % IVS thick 49.7 % % LVPW thick 46.4 % LV mass(C)d 249.9 grams LV mass(C)dI 104.4 grams/m\S\2 LV mass(C)s 289.4 grams LV mass(C)sI 120.9 grams/m\S\2 SV(Teich) 55.0 ml SI(Teich) 23.0 ml/m\S\2 SV(cubed) 60.8 ml SI(cubed) 25.4 ml/m\S\2 Ao root diam 4.0 cm Ao root area 12.6 cm\S\2 LA dimension 3.9 cm LA/Ao 0.97 LVAd ap4 45.3 cm\S\2 LVLd ap4 10.5 cm EDV(MOD-sp4) 154.9 ml EDV(sp4-el) 165.4 ml LVAs ap4 25.5 cm\S\2 LVLs ap4 9.1 cm ESV(MOD-sp4) 60.8 ml ESV(sp4-el) 60.7 ml EF(MOD-sp4) 60.7 % EF(sp4-el) 63.3 % LVAd ap2 44.5 cm\S\2 LVLd ap2 10.2 cm EDV(MOD-sp2) 155.5 ml EDV(sp2-el) 165.2 ml LVAs ap2 24.8 cm\S\2 LVLs ap2 8.1 cm ESV(MOD-sp2) 63.4 ml ESV(sp2-el) 64.9 ml EF(MOD-sp2) 59.3 % EF(sp2-el) 60.7 % LVLd %diff -3.44 % EDV(MOD-bp) 158.8 ml LVLs %diff -13.09 % ESV(MOD-bp) 65.8 ml EF(MOD-bp) 58.6 % SV(MOD-sp4) 94.1 ml SI(MOD-sp4) 39.3 ml/m\S\2 SV(MOD-sp2) 92.2 ml SI(MOD-sp2) 38.5 ml/m\S\2 SV(MOD-bp) 93.0 ml SI(MOD-bp) 38.9 ml/m\S\2 SV(sp4-el) 104.7 ml SI(sp4-el) 43.7 ml/m\S\2 SV(sp2-el) 100.3 ml SI(sp2-el) 41.9 ml/m\S\2 Doppler Measurements and Calculations MV E max jina 95.1 cm/sec MV A max jina 65.5 cm/sec MV E/A 1.5 MV dec time 0.30 sec Ao V2 max 131.9 cm/sec Ao max PG 7.0 mmHg Ao max PG (full) 1.4 mmHg LV V1 max PG 5.5 mmHg LV V1 max 117.4 cm/sec TR max jina 206.5 cm/sec
== END 2016-12-24 14:00 | disposition home or self-care (01) | DRG 300 ==
LOC: C.EDB 09:00 → C.MSICU 11:50 → EDBEDREQ 12:01 → ENRESERV 12:59 → C.MSICU 14:13 → UNDOADMIN 14:13 → CANBEDREQ 12-23 16:15 → CANRESERV 12-23 16:16 → ENRESERV 12-23 16:16 → C.2E 12-23 17:39
PROVIDERS: ADMIT Family Medicine; ATTEND Family Medicine
DX: I71.01 Dissection of thoracic aorta (principal); M00.862 Arthritis due to other bacteria, left knee; F17.200 Nicotine dependence, unspecified, uncomplicated; I95.9 Hypotension, unspecified; I10 Essential (primary) hypertension; R91.1 Solitary pulmonary nodule; Z96.653 Presence of artificial knee joint, bilateral; Z79.82 Long term (current) use of aspirin

== ENCOUNTER → 2016-12-20 | Outpatient (CLI) | payer OTHER ==
[~2016-12-20] MED LIST changes: +OPTIRAY 320 IV PRN
--- NOTE | 2016-12-20 07:54 | DIAGNOSTIC IMAGING REPORT ---
CT ABD/PELVIS IV AND ORAL CONT CLINICAL HISTORY: R93.8 AORTITIS. COMPARISON STUDY: None. TECHNIQUE: Following the IV administration of 92 mL of Optiray-320, CT scan of the abdomen and pelvis was performed from the lung bases to the proximal femurs. Images are reviewed in the axial, sagittal, and coronal planes. IV contrast was administered without complication. A dose lowering technique was utilized adhering to the principles of ALARA. CT DOSE: 1116.81 mGy.cm FINDINGS: Lower chest: The heart is normal in size and configuration, without pericardial effusion. The lung bases and pleural spaces are clear. Liver: The contrast-enhanced liver is normal in size, contour, and attenuation. There is no intrahepatic biliary ductal dilatation. The hepatic veins and portal veins are patent. Gallbladder: Unremarkable. Spleen: Normal in size and attenuation. Pancreas: Unremarkable. Adrenal glands: There is mild left adrenal gland thickening Kidneys: There is symmetric renal cortical enhancement. The kidneys are normal in size without hydronephrosis. Bowel: There are no transition zones indicate bowel obstruction. The appendix appears normal. There is no acute diverticulitis. Peritoneum: There is no intraperitoneal free air or abdominal ascites. There are small fat-containing inguinal hernias right larger than left Vasculature: There is aortic dissection involving the descending thoracic aorta and abdominal aorta. This extends to the level of the aortic bifurcation. Evaluation of the dissection is somewhat limited, as the study was not protocoled for evaluation of a dissection. Adenopathy: There are minimally enlarged common iliac lymph nodes. Pelvic viscera: The bladder, and pelvic viscera are unremarkable. Skeletal structures: There is an old healed fracture the right inferior pubic ramus. IMPRESSION: 1. Aortic dissection which extends from the visualized portion of the lower thoracic aorta, into the iliac arteries. 2. Minimally enlarged common iliac lymph nodes Electronically signed by: Ladarius Stearns M.D. 12/20/2016 7:52 AM Dictated Date/Time: 12/20/2016 7:43 AM
== END | disposition home or self-care (01) ==
LOC: C.CTS 05:18
PROVIDERS: ATTEND Internal Medicine Infectious Disease
DX: R93.8 Abnormal findings on diagnostic imaging of other specified body structures (principal)

== ENCOUNTER → 2017-01-23 | Outpatient (CLI) | payer OTHER ==
[~2017-01-23] MED LIST changes: -CEFT1INJ26 IV; -CLB200 PO; -DRGTP50 TD; +LBT200 PO; +LPT40 PO; -LVQ500 PO; +OPTIRAY 320 IV PRN; +PREDPOW63 PO; -RFM300 PO; -SNK PO; +SULF800T23 PO
--- NOTE | 2017-01-23 12:05 | DIAGNOSTIC IMAGING REPORT ---
CT ANGIOGRAM OF THE CHEST, ABDOMEN, AND PELVIS WITH IV CONTRAST CLINICAL HISTORY: Type B aortic dissection. COMPARISON STUDY: CT angiogram of the chest, abdomen, and pelvis dated 12/23/2016. Chest CT dated 02/05/2016. TECHNIQUE: Following the IV administration of 121 cc of Optiray 320, CT angiogram of the chest, abdomen, and pelvis was performed from the thoracic inlet to the proximal femora. Images are reviewed in the axial, sagittal, and coronal planes. 3-D MIPS images are created and assessed. IV contrast was administered without complication. Automated dose control exposure was utilized. A dose lowering technique was utilized adhering to the principles of ALARA. CT DOSE: 1115.14 mGy.cm FINDINGS: CHEST: Thyroid: Imaged portions of the thyroid gland are normal in size and attenuation. A subcentimeter low-attenuation nodule is seen in the right lobe. Thoracic aorta: The thoracic aorta is normal in course and caliber. The aortic arch demonstrates standard 3-vessel anatomy. There is unchanged appearance of a Type B thoracic aortic dissection. The dissection originates just distal to the takeoff of the left subclavian artery and extends into the abdominal aorta. Intramural hematoma seen on 12/23/2016 has almost completely resolved. Dissection does not involve the arch branches.. Pulmonary vasculature: The pulmonary trunk is normal in caliber. There are no filling defects identified in the main, lobar, or segmental pulmonary vessels to indicate pulmonary embolus. Heart: The heart is normal in size and configuration, and without pericardial effusion. Lungs and pleural spaces: Mild emphysematous change is noted. There is no airspace consolidation or pleural effusion. The trachea and central airways are clear. An 8 mm pulmonary nodule in the right lower lobe as seen on image #181. This is unchanged. No new pulmonary nodules are identified. Mediastinum: There is no mediastinal lymphadenopathy. Karishma: Clear. Axillae: There is no axillary lymphadenopathy. Bony thorax: No destructive bony lesions are identified. Arthritic change is noted in the shoulders. ABDOMEN AND PELVIS: Liver: The contrast-enhanced liver is normal in size, contour, and attenuation. There is no intrahepatic biliary ductal dilatation. The main portal veins appear patent. Gallbladder: Unremarkable. Spleen: Normal in size and attenuation noting heterogeneous arterial phase enhancement. Pancreas: Unremarkable. Adrenal glands: There is nodular thickening of the left adrenal gland. The right adrenal gland is normal in appearance. Kidneys: The contrast enhanced kidneys are normal in size and without hydronephrosis. The kidneys enhance symmetrically. Abdominal aorta and iliac arteries: The abdominal aorta is normal in course and caliber. A type B thoracic aortic dissection extends from the descending thoracic aorta into the common iliac arteries bilaterally. The true and false lumen are widely patent. The dissection on the right terminates in the proximal common iliac artery. The dissection on the left extends into the intramedullary artery. The iliac arteries are normal in caliber and widely patent bilaterally. A tiny focal dissection is also seen within the distal right common iliac artery on image #308 and within the proximal right internal iliac artery. Thrombus within the right common iliac artery dissection seen on 12/23/2016 has resolved. Major branches of the abdominal aorta: The celiac trunk, superior mesenteric, and inferior mesenteric arteries are widely patent enteritis from the true lumen. The left gastric artery arises directly from the abdominal aorta. There is a single right renal artery which arises from the true lumen. Dissection is seen within the right renal artery on axial image #163. There is a single left renal artery which arises from the true lumen. There is also dissection within the proximal left renal artery. This is best seen on axial image #166. Hepatic arterial anatomy is conventional. The splenic artery is patent. Bowel: The small bowel and colon are normal in course and caliber. The appendix is well-visualized and normal. Peritoneum: There is no intraperitoneal free air or abdominal ascites. There is a tiny fat-containing umbilical hernia. Lymphadenopathy: None. Pelvic viscera: The bladder, prostate, and seminal vesicles are normal as visualized. Skeletal structures: No destructive bony lesions are seen. Mild lumbosacral spondylosis is observed. There are healed right pubic ring fractures. IMPRESSION: 1. Again seen is a Type B aortic dissection extending from the distal arch into the iliac arteries bilaterally. Extent of the dissection is unchanged from 12/23/2016. 2. Intramural hematoma is seen in the thoracic region has almost completely resolved from previous. 3. Dissection extends into both renal arteries. 4. The true and false lumen are well opacified. 5. The major branches of the abdominal aorta are widely patent and arise from the true lumen. 6. Mild emphysema. 7. An 8 mm right lower lobe pulmonary nodule is unchanged. 8. There are no acute infectious or inflammatory findings in the abdomen or pelvis. 9. Additional findings as above. Electronically signed by: Luis Angel Jo M.D. 01/23/2017 12:04 PM Dictated Date/Time: 01/23/2017 11:38 AM
== END | disposition home or self-care (01) ==
LOC: C.CTS 10:36
PROVIDERS: ATTEND Physician Assistant
DX: I71.01 Dissection of thoracic aorta (principal); I77.73 Dissection of renal artery; R91.1 Solitary pulmonary nodule